=== PATIENT | female | born 1955 | race Caucasian/White ===

== ENCOUNTER 2017-03-30 14:10 | Inpatient (IN) ==
[2017-03-30] MEDS ORDERED: 0.9 % Sodium Chloride 1,000 ML IVC ONE (16:10)
[2017-03-30] MEDS ORDERED: Ondansetron 4 MG/2 ML VIAL IVP ONE (16:10)
[2017-03-30] MEDS ORDERED: Metoclopramide 10 MG/2 ML VIAL IVP ONE (16:11)
[2017-03-30 16:13] LABS: Basophils # 0.1 K/mcL (0.0-0.2); Basophils % 0.6 %; Eosinophils # 0.2 K/mcL (0.0-0.6); Eosinophils % 1.6 %; Hematocrit 39.8 % (35.3-44.9); Hemoglobin 13.1 g/dL (11.5-15.4); Immature Granulocytes % 0.5 % (0-4); Lymphocytes # 2.2 K/mcL (0.6-4.6); Lymphocytes % 20.9 %; Mean Corpuscular HGB Conc 32.9 g/dL (31.6-35.5); Mean Corpuscular Hemoglobin 30.9 pg (28.0-33.3); Mean Corpuscular Volume 93.9 fL (83.0-100.0); Mean Platelet Volume 9.9 fL (9.4-12.4); Monocytes % 9.5 %; Neutrophils # 7.1 K/mcL (1.6-8.9); Platelet Count 209 K/mcL (140-400); Red Blood Count 4.24 M/mcL (3.82-4.97); Segmented Neutrophils % 66.9 %
[2017-03-30 16:25] LABS: Alanine Aminotransferase 10 Units/L (0-55); Albumin 2.9 g/dL (3.5-5.0); Albumin/Globulin Ratio 0.8 (1.1-2.2); Alkaline Phosphatase 87 Units/L (38-126); Aspartate Amino Transferase 9 Units/L (5-34); BUN/Creatinine Ratio 10 (6-26); Bilirubin,Direct 0.2 mg/dL (0.0-0.5); Bilirubin,Indirect 0.3 mg/dL (0.0-1.2); Bilirubin,Total 0.5 mg/dL (0.2-1.2); Blood Urea Nitrogen 7 mg/dL (7-20); Calcium 8.6 mg/dL (8.6-10.8); Carbon Dioxide 28 mEq/L (19-29); Chloride 103 mEq/L (98-109); Globulin 3.7 g/dL (2.4-3.5); Glucose 73 mg/dL (70-99); Osmolality,Calculated 283 (280-300); Potassium 3.2 mEq/L (3.5-4.5); Sodium 138 mEq/L (136-145); Total Protein 6.6 g/dL (6.0-8.3); eGFR For African Americans > 60 (> 60); eGFR For Non-African Americans > 60 (> 60)
--- NOTE | 2017-03-30 17:30 | Emergency Department Note ---
START Narrative - START START: I examined this patient and my medical decision-making was reviewed with the Resident Physician. I agree with the documented findings, disposition and treatment plan as described except to the extent set forth below. 61-year-old female presents emergency room for headache. History of aneurysm in the past. We will do a CT head and CTA. Vital signs are stable.
--- NOTE | 2017-03-30 18:59 | Emergency Department Note ---
Disposition Clinical Impression: Ischemic stroke Headache Qualifiers: Headache type: unspecified Headache chronicity pattern: acute headache Intractability: not intractable Qualified Code(s): R51 - Headache Disposition: Admitted As Inpatient Condition: Fair Referrals: Indigo Louis CNP [Primary Care Provider] - Forms: ED Satisfaction Letter Time of Disposition: 19:47 Headache HPI - General Chief Complaint: ED Headache Stated Complaint: Crystal, blurry vision Time Seen by Provider: 03/30/17 15:24 Limitations: no limitations Nursing Notes Reviewed: Yes Vital Signs Reviewed: Yes - History of Present Illness HPI Narrative: 61-year-old female past medical history of brain aneurysm, hypertension and blindness in the left eye presents to the emergency department with a 48-hour history of left frontal headache. Pain Scale: 8 - Related Data Home Medications Medication Instructions Recorded Confirmed Albuterol Neb [Proventil Neb] 2.5 mg IH Q4H PRN 03/30/17 03/30/17 Donepezil [Aricept] 5 mg PO HS 03/30/17 03/30/17 Doxycycline Monohydrate [Avidoxy] 100 mg PO BID 03/30/17 03/30/17 Fluticasone/Vilanterol [Breo 1 each IH DAILY 03/30/17 03/30/17 Ellipta 100-25 Mcg INH] Lisinopril/Hydrochlorothiazide 1 each PO DAILY 03/30/17 03/30/17 [Zestoretic 20-25 mg Tablet] Naproxen [Naproxen] 500 mg PO BID PRN 03/30/17 03/30/17 Omeprazole [PriLOSEC] 40 mg PO DAILY 03/30/17 03/30/17 Varenicline Tartrate [Chantix] 1 tab PO PER PKG DI 03/30/17 03/30/17 Allergies Allergy/AdvReac Type Severity Reaction Status Date / Time No Known Allergies Allergy Verified 03/30/17 14:16 All systems ED: reviewed and negative except as stated. Review of Systems: As Per HPI Constitutional: Denies: fever, chills Eyes: Reports: vision change. Denies: eye pain ENT ED: Denies: ear pain, throat pain Cardiovascular: Denies: chest pain Respiratory: Denies: cough, dyspnea Gastrointestinal: Denies: abdominal pain, nausea, vomiting Genitourinary: Denies: urgency, dysuria, frequency Musculoskeletal: Denies: back pain, neck pain Integumentary: Denies: rash Neurological: Reports: headache. Denies: weakness, numbness, paresthesias Endocrine: Denies: fatigue Headache PMH - Past Medical History Medical history: Reports: COPD, hyperlipidemia, hypertension, other Psychiatric history: Reports: no psych history - Social History Smoking Status: Current every day smoker Alcohol use: Reports: none Drug use: Reports: none Physical Exam General: Well Appearing, in no acute distress Head: autraumatic, EOMI, no conjuncitval pallor, no scleral icterus, Mouth: oral mucous membranes moist Neck: neck soft, trachea midline Chest:: Equal chest wall rise Lungs: Normal lungs sounds bilaterally, no wheezes, no respiratory distress Heart: normal heart sounds, normal rate and rhythm, Abdomen: soft, non-tender, no rigidity, no guarding, no rebdound tenderness Lower Extremities: no pedal edema, calves non-tender Integumentary: Skin warm, dry, and intact Neuro: Alert and oriented to person place and time, left eye blind but this is not new, subjective blurriness out of right eye, diffuse visual field deficit with right eye, sensory and motor intact, strength 5 out of 5 in upper and lower shoulders bilaterally, negative pronator drift, negative heel to avina Psych: normal affect, normal mood - General Limitations: no limitations General appearance: alert, in no apparent distress Course Course Narrative: 61-year-old female with 48 hour history of severe headache this emergency department with concern for a ruptured brain aneurysm. Patient also had blurriness in her right eye. She is concern for an intracranial hemorrhage or ischemic stroke. CT scan of the head was obtained and revealed a right occipital lobe infarct. Electrocardiogram did not show any signs of atrial fibrillation as the patient was in normal sinus rhythm. Neurology was consulted and recommended to start the patient on 325 mg of aspirin daily as she is not on any blood thinners or antiplatelet medications. The patient's headache resolved in the emergency department through the use of normal saline, Reglan, Benadryl. Patient still having symptoms of blurry vision at time of admission to the hospital. Hospitalist was called and accepted the admission. I discussed the plan with the patient and her son and they are agreed with admission. The patient was hemodynamically stable at time of admission. Repeat blood pressure was 162/98. Vital Signs Temperature 98.2 F 03/30/17 14:18 Pulse Rate 88 03/30/17 14:18 Respiratory Rate 20 03/30/17 14:18 Blood Pressure 182/108 03/30/17 14:18 O2 Sat by Pulse Oximetry 99 03/30/17 14:18 Temperature 98.2 F 03/30/17 14:18 Pulse Rate 88 03/30/17 14:18 Respiratory Rate 20 03/30/17 14:18 Blood Pressure 182/108 03/30/17 14:18 O2 Sat by Pulse Oximetry 99 03/30/17 14:18 Oxygen Delivery Oxygen Delivery Room Air Angiography CT 03/30/17 16:02 IMPRESSION: Left-sided parasellar aneurysm clipping near the A-comm. No residual or recurrent aneurysm is detected. Low-density changes within the right occipital lobe suspicious for acute ischemia. MRI of the brain is suggested for further evaluation. Left frontotemporal craniotomy changes with underlying encephalomalacia not significantly changed. D/ : / 03/30/2017 18:25:41 Gildardo Herrera MD / [email or web address] Interpreting Provider: Gildardo Herrera MD Chest X-Ray 03/30/17 16:12 IMPRESSION: No acute cardiopulmonary process. D/ / 03/30/2017 16:52:12 Zac Aguilar MD / bcarter Interpreting Provider: Zac Aguilar MD Vital Signs Temperature 98.2 F 03/30/17 14:18 Pulse Rate 88 03/30/17 14:18 Respiratory Rate 20 03/30/17 14:18 Blood Pressure 182/108 03/30/17 14:18 O2 Sat by Pulse Oximetry 99 03/30/17 14:18 Temperature 98.2 F 03/30/17 14:18 Pulse Rate 88 03/30/17 14:18 Respiratory Rate 20 03/30/17 14:18 Blood Pressure 182/108 03/30/17 14:18 O2 Sat by Pulse Oximetry 99 03/30/17 14:18 Oxygen Delivery Oxygen Delivery Room Air Headache - Medical Records Medical records reviewed: Yes I reviewed the patient's medical records. - Lab Data Lab results reviewed: Yes I reviewed the patient's lab results. Result diagrams: 03/30/17 15:54 03/30/17 15:54 Lab Results 03/30/17 03/30/17 03/30/17 Range/Units 15:54 15:54 15:54 WBC 10.6 (4.3-11.1) K/mcL RBC 4.24 (3.82-4.97) M/mcL Hgb 13.1 (11.5-15.4) g/dL Hct 39.8 (35.3-44.9) % MCV 93.9 (83.0-100.0) fL MCH 30.9 (28.0-33.3) pg MCHC 32.9 (31.6-35.5) g/dL RDW 13.0 (11.5-14.5) % Plt Count 209 (140-400) K/mcL MPV 9.9 (9.4-12.4) fL Immature Gran % 0.5 (0-4) % Seg Neutrophils % 66.9 % Lymphocytes % 20.9 % Monocytes % 9.5 % Eosinophils % 1.6 % Basophils % 0.6 % Neutrophils # 7.1 (1.6-8.9) K/mcL Lymphocytes # 2.2 (0.6-4.6) K/mcL Monocytes # 1.0 (0.0-1.3) K/mcL Eosinophils # 0.2 (0.0-0.6) K/mcL Basophils # 0.1 (0.0-0.2) K/mcL PT (9.4-12.1) Seconds INR APTT (26.0-36.0) Seconds Sodium 138 (136-145) mEq/L Potassium 3.2 L (3.5-4.5) mEq/L Chloride 103 (98-109) mEq/L Carbon Dioxide 28 (19-29) mEq/L BUN 7 (7-20) mg/dL Creatinine 0.70 (0.57-1.11) mg/dL Est GFR ( Amer) > 60 (> 60) Est GFR (Non-Af Amer) > 60 (> 60) BUN/Creatinine Ratio 10 (6-26) Glucose 73 (70-99) mg/dL Calculated Osmolality 283 (280-300) Calcium 8.6 (8.6-10.8) mg/dL Total Bilirubin 0.5 (0.2-1.2) mg/dL Direct Bilirubin 0.2 (0.0-0.5) mg/dL Indirect Bilirubin 0.3 (0.0-1.2) mg/dL AST 9 (5-34) Units/L ALT 10 (0-55) Units/L Alkaline Phosphatase 87 (38-126) Units/L Troponin I 0.00 (0-0.03) ng/mL Serum Total Protein 6.6 (6.0-8.3) g/dL Albumin 2.9 L (3.5-5.0) g/dL Globulin 3.7 H (2.4-3.5) g/dL Albumin/Globulin Ratio 0.8 L (1.1-2.2) 03/30/17 Range/Units 15:54 WBC (4.3-11.1) K/mcL RBC (3.82-4.97) M/mcL Hgb (11.5-15.4) g/dL Hct (35.3-44.9) % MCV (83.0-100.0) fL MCH (28.0-33.3) pg MCHC (31.6-35.5) g/dL RDW (11.5-14.5) % Plt Count (140-400) K/mcL MPV (9.4-12.4) fL Immature Gran % (0-4) % Seg Neutrophils % % Lymphocytes % % Monocytes % % Eosinophils % % Basophils % % Neutrophils # (1.6-8.9) K/mcL Lymphocytes # (0.6-4.6) K/mcL Monocytes # (0.0-1.3) K/mcL Eosinophils # (0.0-0.6) K/mcL Basophils # (0.0-0.2) K/mcL PT 11.8 (9.4-12.1) Seconds INR 1.1 APTT 28.0 (26.0-36.0) Seconds Sodium (136-145) mEq/L Potassium (3.5-4.5) mEq/L Chloride (98-109) mEq/L Carbon Dioxide (19-29) mEq/L BUN (7-20) mg/dL Creatinine (0.57-1.11) mg/dL Est GFR ( Amer) (> 60) Est GFR (Non-Af Amer) (> 60) BUN/Creatinine Ratio (6-26) Glucose (70-99) mg/dL Calculated Osmolality (280-300) Calcium (8.6-10.8) mg/dL Total Bilirubin (0.2-1.2) mg/dL Direct Bilirubin (0.0-0.5) mg/dL Indirect Bilirubin (0.0-1.2) mg/dL AST (5-34) Units/L ALT (0-55) Units/L Alkaline Phosphatase (38-126) Units/L Troponin I (0-0.03) ng/mL Serum Total Protein (6.0-8.3) g/dL Albumin (3.5-5.0) g/dL Globulin (2.4-3.5) g/dL Albumin/Globulin Ratio (1.1-2.2) - Radiology Data Radiology results reviewed: Yes I reviewed the patient's radiology results. - EKG Data EKG attestation: Yes I reviewed and interpreted this EKG. EKG results narrative: 14:27 Ventricular rate 82 bpm, WA interval 142 ms, QR anabaptism 65 ms, QT 342 ms, QTC 381 ms, normal axis. Sinus rhythm with a ventricular rate of 82 bpm. There are no acute ischemic ST changes noted on this EKG. This EKG is no different from the one performed on May 022001.
[2017-03-30 19:18] LABS: INR 1.1; Prothrombin Time 11.8 Seconds (9.4-12.1)
[2017-03-30] MEDS ORDERED: Aspirin 81 MG TAB.CHEW ONE (20:50)
[2017-03-30] MEDS: Aspirin Enteric Coated 81 MG Tablet PO SCH (20:55)
--- NOTE | 2017-03-30 22:50 | Internal Med History&Physical ---
<DirkGrady - Last Filed: 03/30/17 23:12> Date of Encounter: 03/30/17 Time of Encounter: 22:48 Assessment and Plan (1) CVA (cerebral vascular accident) Current visit: Yes Status: Acute CTA demonstrated findings suspicious for right occipital lobe ischemia, which correspond to her new visual deficits Neurology consulted, appreciate recommendations She has been started on full dose ASA, which we will continue Will obtain Lipid panel and start her on Atorvastatin 40 mg Obtain Echocardiogram and Carotid duplex bilaterally Cannot receive MRI due to history of aneurysmal clips Qualifiers: Qualified Code(s): I63.9 - Cerebral infarction, unspecified (2) COPD (chronic obstructive pulmonary disease) Current visit: Yes Status: Chronic Not in exacerbation as she is not requiring any oxygen and is not short of breath Will support with Robitussin as patient is complaining of cough Continue home inhalers Qualifiers: Qualified Code(s): J44.9 - Chronic obstructive pulmonary disease, unspecified (3) Hypertension Current visit: Yes Status: Chronic Initially presented with BP 182/108 but has decreased without any medications Will allow for permissive hypertension in setting of acute CVA, so will home Lisinopril/HCTZ Qualifiers: Qualified Code(s): I10 - Essential (primary) hypertension (4) Hypokalemia Current visit: Yes Status: Acute Potassium initially 3.2 in ED and received 40 mEq there Obtain AM electrolyte levels including Mg and Phos (5) Alzheimers disease Current visit: Yes Status: Chronic Stable; son confirmed patient's mental status is at baseline and she is A/O x3 Continue home Aricept Qualifiers: Qualified Code(s): G30.9 - Alzheimer's disease, unspecified; F02.80 - Dementia in other diseases classified elsewhere without behavioral disturbance; F02.80 - Dementia in other diseases classified elsewhere without behavioral disturbance; F02.80 - Dementia in other diseases classified elsewhere without behavioral disturbance (6) DVT prophylaxis Current visit: Yes Status: Acute Heparin 5000 units BID Internal Medicine - H&P: HPI Chief complaint: headache Admitted From: Home Plans for Post Hospital Care: Home History of present illness: Ms. Rondon is a 61 year old female who presents with left sided headache that started 2 days ago. She has a history of brain aneurysm which was repaired with clips 10 years ago. She has residual deficits including left eye blindness and forgetfulness, but has no weakness. Son is at bedside and is able to assist with history. Patient states that the pain is very close to where her clippings were and states that her right eye has been blurry and she sees double or triple of objects. She normally has normal vision in her right eye. Also complains of a cough that has been persistent for a week, but is non- productive. Denies any chest pain, shortness of breath, lightheadedness, facial droop, syncope, incontinence. Patient does not take daily aspirin and was previously on cholesterol medication. She does have HTN and is on Zestoretic but states that her blood pressure does drop at times. Denies any bleeding, clotting, or history of cancer. She lives at home with son and is functional in ADL. Past Med Surg Social Fam HX - Past Medical History Medical history: COPD, hyperlipidemia, hypertension, other Psychiatric history: no psych history - Social History Smoking Status: Current every day smoker Smokeless Tobacco Status: No Alcohol use: none Drug use: none Internal Medicine - H&P: Meds Albuterol Neb [Proventil Neb] 2.5 mg IH Q4H PRN 03/30/17 [History] Donepezil [Aricept] 5 mg PO HS 03/30/17 [History] Doxycycline Monohydrate [Avidoxy] 100 mg PO BID 03/30/17 [History] Fluticasone/Vilanterol [Breo Ellipta 100-25 Mcg INH] 1 each IH DAILY 03/30/17 [ History] Lisinopril/Hydrochlorothiazide [Zestoretic 20-25 mg Tablet] 1 each PO DAILY 06/04 [History] Naproxen [Naproxen] 500 mg PO BID PRN 03/30/17 [History] Omeprazole [PriLOSEC] 40 mg PO DAILY 03/30/17 [History] Varenicline Tartrate [Chantix] 1 tab PO PER PKG DI 03/30/17 [History] 3 Allergy/AdvReac Type Severity Reaction Status Date / Time No Known Allergies Allergy Verified 03/30/17 14:16 All Systems PM: A 10-system review of systems was performed and is negative for pertinent findings except as documented above in the HPI. - Constitutional Constitutional: no chills, no fever(s), no night sweats, no weakness - EENT Eyes: blurry vision, diplopia, loss of vision (chronically on left), no change in vision, no discharge, no pain, no photophobia Ears: no ear discharge, no ear pain, no tinnitus Nose, mouth and throat: no dysphagia, no nasal discharge, no neck pain, no sore throat - Cardiovascular Cardiovascular ROS IM: no chest pain, no diaphoresis, no dyspnea, no dyspnea on exertion, no lightheadedness, no palpitations, no syncope - Respiratory Respiratory: no cough, no dyspnea, no wheezing, no excessive phlegm production - Gastrointestinal Gastrointestinal: no abdominal pain, no diarrhea, no hematemesis, no hematochezia, no melena, no nausea, no vomiting - Genitourinary Genitourinary: no change in urinary stream, no dysuria, no flank pain, no hematuria - Musculoskeletal Musculoskeletal ROS IM: no numbness, no tingling - Integumentary Integumentary IM: no rash, no unusual bruising - Neurological Neurological ROS: headache(s), memory loss, no abnormal gait, no abnormal hearing, no confusion, no convulsions, no focal weakness, no frequent falls, no numbness, no tingling, no tremor(s) - Hematologic/Lymphatic Hematologic/Lymphatic: no easy bruising - Constitutional Vitals: Temp Pulse Resp BP Pulse Ox 98.2 F 64 20 151/92 99 03/30/17 14:18 03/30/17 19:59 03/30/17 19:59 03/30/17 19:59 03/30/17 19:59 General appearance: Present: cooperative, A&O X 3, pleasant, no acute distress, answers questions appropriately - Head Head exam: Present: atraumatic, normocephalic - Eye Eye exam: Present: PERRL, conjuntiva pink, sclera anicteric - Neck Neck exam general surgery: Present: supple, trachea midline. Absent: lymphadenopathy - Respiratory Respiratory exam: Present: wheezes. Absent: accessory muscle use, rales, rhonchi - Cardiovascular Cardiovascular exam: Present: RRR, +S1, +S2. Absent: diastolic murmur, gallop, rubs, systolic murmur - GI/Abdominal GI/Abdominal exam: Present: normal bowel sounds, soft, no peritoneal signs. Absent: distended, tenderness - Extremities Exam Extremities exam: Present: warm, radial pulses palpable and symmetrical. Absent : calf tenderness, cyanotic, pedal edema - Neurological Exam Neurological exam: Present: alert, CN II-XII intact, oriented X3, no focal deficits, strengths equal and symetr throughout. Absent: motor sensory deficit , facial droop, speech deficit - Skin Skin exam: Present: dry, intact Internal Med - H&P Results - Labs CBC & Chem 7: 03/30/17 15:54 03/30/17 15:54 <Celia Hodges - Last Filed: 03/31/17 03:38> Date of Encounter: 03/30/17 Internal Medicine - H&P: HPI History of present illness: Ms. Rondon is a 61 year old female All Systems PM: A 10-system review of systems was performed and is negative for pertinent findings except as documented above in the HPI. - Constitutional Vitals: Temp Pulse Resp BP Pulse Ox 98.3 F 60 15 117/71 96 03/31/17 00:46 03/31/17 00:46 03/31/17 00:46 03/31/17 00:46 03/31/17 00:46 Internal Med - H&P Results - Labs CBC & Chem 7: 03/30/17 15:54 03/30/17 15:54 - Attending Attestation I have personally seen and examined the patient. Plan discussed with the resident. Patient came in with headache and diplopia. Symptoms have resolved. Examination otherwise is unremarkable except for left eye blindness. Patient has an occipital stroke. MRI brain ultrasound carotid echocardiogram ordered as well as aspirin and neuro consult.
[2017-03-30] MEDS ORDERED: Naloxone 0.4 MG/ML INJ IVP PRN (23:00)
[2017-03-30] MEDS ORDERED: Ondansetron ODT 4 MG TAB.RAPDIS SL PRN (23:00)
[2017-03-31] MEDS: Acetaminophen 325 MG TABLET PO PRN ×2 (00:09→20:57)
[2017-03-31] MEDS: Albuterol 2.5 MG/3 ML NEBULIZER IH SCH ×5 (03:56→15:26)
[2017-03-31 06:07] LABS: Basophils % 0.5 %; Eosinophils # 0.2 K/mcL (0.0-0.6); Eosinophils % 2.1 %; Hematocrit 37.1 % (35.3-44.9); Hemoglobin 12.2 g/dL (11.5-15.4); Immature Granulocytes % 0.6 % (0-4); Lymphocytes # 2.3 K/mcL (0.6-4.6); Lymphocytes % 27.3 %; Mean Corpuscular HGB Conc 32.9 g/dL (31.6-35.5); Mean Corpuscular Hemoglobin 31.1 pg (28.0-33.3); Mean Corpuscular Volume 94.6 fL (83.0-100.0); Mean Platelet Volume 10.4 fL (9.4-12.4); Monocytes # 0.8 K/mcL (0.0-1.3); Monocytes % 9.9 %; Neutrophils # 4.9 K/mcL (1.6-8.9); Platelet Count 199 K/mcL (140-400); Red Blood Count 3.92 M/mcL (3.82-4.97); Segmented Neutrophils % 59.6 %
[2017-03-31] MEDS: *HR* Heparin 5,000 UNIT/ML VIAL SQ SCH ×2 (06:07→17:28)
[2017-03-31 06:23] LABS: BUN/Creatinine Ratio 10 (6-26); Blood Urea Nitrogen 7 mg/dL (7-20); Calcium 8.5 mg/dL (8.6-10.8); Carbon Dioxide 25 mEq/L (19-29); Chloride 109 mEq/L (98-109); Chol/HDL Ratio 3.5 (0-4.9); Cholesterol 172 mg/dL (< 200); Glucose 95 mg/dL (70-99); HDL Cholesterol 49 mg/dL (40-59); LDL Cholesterol,Calculated 108 mg/dL (0-99); Magnesium 1.9 mg/dL (1.6-2.6); Osmolality,Calculated 288 (280-300); Phosphorous 3.7 mg/dL (2.3-4.7); Sodium 140 mEq/L (136-145); Triglycerides 77 mg/dL (< 150); eGFR For African Americans > 60 (> 60); eGFR For Non-African Americans > 60 (> 60)
--- NOTE | 2017-03-31 07:00 | Internal Med Progress Note ---
<Steve Roberts - Last Filed: 03/31/17 11:15> Date of Encounter: 03/31/17 - Constitutional Vitals: Temp Pulse Resp BP Pulse Ox 98.4 F 62 17 121/71 96 03/31/17 05:37 03/31/17 07:00 03/31/17 07:00 03/31/17 07:00 03/31/17 07:39 Internal Medicine: Result - Labs CBC & Chem 7: 03/31/17 05:19 03/31/17 05:19 - ABG Interpretation ABG results: PT/INR, D-dimer PT 11.8 Seconds (9.4-12.1) 03/30/17 15:54 Consult Discharge Plan - Plan Referrals: Indigo Louis CNP [Primary Care Provider] - - Attending Attestation I examined this patient and my medical decision-making was reviewed with the Resident Physician. I agree with the documented findings, disposition and treatment plan as described except to the extent set forth below. Patient seen and examined. Chart reviewed. Patient came with worsening headache. Patient has a history of a previous aneurysmal surgery in the past. CT suggestive of possible infarct. Neurology on the board. We will follow the neurology recommendations. <Krista Wilks - Last Filed: 03/31/17 23:34> Date of Encounter: 03/31/17 Time of Encounter: 09:00 - Assessment and plan (1) CVA (cerebral vascular accident) Current Visit: Yes Status: Acute Assessment and plan: -ASA and atorvastatin started -normal sinus rhythm on EKG -echocardiogram findings: no evidence of PFO, LVEF 60-65%, normal LV diastolic function, no significant valvular dysfunction -CTA of head: low density changes in Rt occipital lobe are suspicious for acute ischemia -brain aneurysm with clips in 2006, MRI of head is contraindicated -carotid doppler ordered -patient will see neurology at [facility] as out-patient f/u -neurology consult, appreciate recommendations Qualifiers: CVA mechanism: unspecified Qualified Code(s): I63.9 - Cerebral infarction, unspecified (2) COPD (chronic obstructive pulmonary disease) Current Visit: Yes Status: Chronic Assessment and plan: -saturating well on room air, non-labored respirations -continue albuterol and symbicort inhalers Qualifiers: COPD type: unspecified COPD Qualified Code(s): J44.9 - Chronic obstructive pulmonary disease, unspecified (3) Alzheimers disease Current Visit: Yes Status: Chronic Assessment and plan: -at time of exam, pt is alert and oriented to person, place, and time; answers questions appropriately continue donepezil Qualifiers: Alzheimer's disease onset: other onset Dementia behavioral disturbance: without behavioral disturbance Qualified Code(s): G30.8 - Other Alzheimer's disease; F02.80 - Dementia in other diseases classified elsewhere without behavioral disturbance; F02.80 - Dementia in other diseases classified elsewhere without behavioral disturbance; F02.80 - Dementia in other diseases classified elsewhere without behavioral disturbance (4) DVT prophylaxis Current Visit: Yes Status: Acute Assessment and plan: Heparin 5,000 units SubQ - Subjective Interval history: Patient seen and examined at bedside this morning. Vision in patient's Rt eye remains blurred, no change. She feels well this morning and has no additional complaints. Patient denies fever, chill, nausea, vomiting, tinnitus, paresthesias, exremity weakness. - Constitutional Vitals: Temp Pulse Resp BP Pulse Ox 98.4 F 60 15 115/66 95 03/31/17 05:37 03/31/17 05:37 03/31/17 05:37 03/31/17 05:37 03/31/17 05:37 General appearance: Present: cooperative, A&O X 3, pleasant, no acute distress, answers questions appropriately Exam: Gen: Vitals noted. No acute distress. Pleasant. HEENT: EOMI, no scleral icterus, normocephalic, atraumatic, Neck: Supple. Normal ROM. Cardiac: RRR, no murmur, +S1/S2 Pulmonary: no wheezes or rales, diffuse rhonchi; normal respiratory effort, saturating well on room air, no tachypnea Abdomen: nondistended, BS noted Extremities: no LE edema, no cyanosis or clubbing, pedal pulses symmetrical Neuro: AAOx3, no focal deficits, no speech deficits, facial droop; CN II-XII grossly intact, 5/5 strength b/l upper and lower extremities; sensation to touch intact b/l lower and upper extremities Psych: Appropriately answers questions, cooperative, appropriate behavior Internal Medicine: Result - Labs CBC & Chem 7: 03/31/17 05:19 03/31/17 05:19 Labs: Short CBC 03/31/17 Range/Units 05:19 WBC 8.3 (4.3-11.1) K/mcL Hgb 12.2 (11.5-15.4) g/dL Hct 37.1 (35.3-44.9) % Plt Count 199 (140-400) K/mcL Neutrophils # 4.9 (1.6-8.9) K/mcL BMP 03/31/17 05:19 Sodium 140 Potassium 4.0 Chloride 109 Carbon Dioxide 25 BUN 7 Creatinine 0.67 Glucose 95 Calcium 8.5 L - ABG Interpretation ABG results: PT/INR, D-dimer PT 11.8 Seconds (9.4-12.1) 03/30/17 15:54
[2017-03-31] MEDS: Aspirin Enteric Coated 81 MG Tablet PO SCH (09:26)
--- NOTE | 2017-03-31 10:36 | Neurology - Consult Note ---
<Spenser Putnam - Last Filed: 03/31/17 10:44> Date of Encounter: 03/31/17 Time of Encounter: 09:00 Assessment and Plan (1) CVA (cerebral vascular accident) Current Visit: Yes Status: Acute Patient presents to the hospital after several days of visual changes in her right eye including blurriness and double vision. 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 She has no other concerns or complaints and physical exam reveals no abnormalities other than double vision in her right eye and chronic blindness left. Patient is unable to have MRI due to previous aneurysm repair with clips, the CT of patient head shows area in the right occipital lobe suspicious for acute infarct. Recommend further workup to assess potential cause of CVA, including: Carotid Dopplers and echocardiogram Recommend aspirin and statin Recommend PT/OT Qualifiers: CVA mechanism: unspecified Qualified Code(s): I63.9 - Cerebral infarction, unspecified History of Present Illness Chief complaint: CVA and Vision Changes HPI: Ms. Rondon is a 61 year old female with previous medical history of COPD, hypertension, hyperlipidemia, and previous brain aneurysm (repaired about 10 years ago) who presents here [facility] after 3 days of vision changes. She had an aneurysm repaired about 10 years ago a left side of her brain with residual left eye blindness. She noticed Monday morning she was experienced blurred vision and double vision of her right eye. Her symptoms have remained relatively constant for last couple days but the family decided she needed to come to the hospital. She reports having intermittent headache over the last few days but nothing the symptoms associated with the symptoms she is having. She reports no focal weakness and no numbness or tingling anywhere extremities or face. Past Med Surg Social Fam HX - Past Medical History Medical history: COPD, CVA, hyperlipidemia, hypertension, other Psychiatric history: no psych history - Past Surgical History Surgical History: cholecystectomy, hysterectomy - Social History Smoking Status: Current every day smoker Packs per day: 1.5 Smokeless Tobacco Status: No Alcohol use: none Drug use: none - Family History Father Living Status: Age at : 45 Cause of : Cancer Hx Family Cancer: Yes (Unknown what kind of cancer) Medications and Allergies Albuterol Neb [Proventil Neb] 2.5 mg IH Q4H PRN 03/30/17 [History] Donepezil [Aricept] 5 mg PO HS 03/30/17 [History] Doxycycline Monohydrate [Avidoxy] 100 mg PO BID 03/30/17 [History] Fluticasone/Vilanterol [Breo Ellipta 100-25 Mcg INH] 1 each IH DAILY 03/30/17 [ History] Lisinopril/Hydrochlorothiazide [Zestoretic 20-25 mg Tablet] 1 each PO DAILY 06/04 [History] Naproxen [Naproxen] 500 mg PO BID PRN 03/30/17 [History] Omeprazole [PriLOSEC] 40 mg PO DAILY 03/30/17 [History] Varenicline Tartrate [Chantix] 1 tab PO PER PKG DI 03/30/17 [History] 3 Allergy/AdvReac Type Severity Reaction Status Date / Time No Known Allergies Allergy Verified 03/30/17 14:16 Review of Systems: Gen: Denies fever, denies chills CV: Denies chest pain Resp: Denies shortness of breath GI: Denies nausea, denies vomiting Neuro: Report intermittent headaches as per history of present illness, denies confusion, denies focal weakness, denies numbness, denies tingling, reports chronic left eye blindness, reports new right eye blurriness and double vision Physical Examination - Vital Signs Vital Signs: Initial Vital Signs Temp Pulse Resp BP Pulse Ox 98.2 F 88 20 182/108 99 03/30/17 14:18 03/30/17 14:18 03/30/17 14:18 03/30/17 14:18 03/30/17 14:18 - Exam Exam: General: Cooperative, pleasant, no acute distress, alert and oriented 3, answers questions appropriately HEENT: Normocephalic, atraumatic, neck supple, trachea midline, Conjunctiva pink , sclera anicteric, EOMI, PERRL, oral mucosa moist, no orophargeal erythema or exudates, areas of erythema and pallor on tongue Respiratory: No accessory muscle usage, clear to auscultation bilaterally Cardiovascular: Regular rate and rhythm Extremities: No calf tenderness, noncyanotic, no pedal edema appreciated, warm, lower extremity pulses palpable and symmetrical Neurological: Alert and oriented 3, no facial droop, cranial nerves II through XII grossly intact bilaterally except for blindness in left eye (chronic) and double vision in right eye, rapid alternating movements smooth with good omid , finger to nose smooth and accurate, sensation to gross touch intact in upper and lower extremities bilaterally, strength 5/5 in upper and lower extremities bilaterally, DTRs 2/4 in Achilles, patellar, brachioradialis Results - Laboratory Findings CBC and BMP: 03/31/17 05:19 03/31/17 05:19 Abnormal lab findings: Abnormal lab results Calcium 8.5 mg/dL (8.6-10.8) L 03/31/17 05:19 Albumin 2.9 g/dL (3.5-5.0) L 03/30/17 15:54 Globulin 3.7 g/dL (2.4-3.5) H 03/30/17 15:54 Albumin/Globulin Ratio 0.8 (1.1-2.2) L 03/30/17 15:54 LDL Cholesterol, Calc 108 mg/dL (0-99) H 03/31/17 05:19 Consult Discharge Plan - Plan Referrals: Indigo Louis, SYBASE DEVELOPER [Primary Care Provider] - <Celia Baum I - Last Filed: 03/31/17 11:15> Date of Encounter: 03/31/17 Assessment and Plan (1) CVA (cerebral vascular accident) Current Visit: Yes Status: Acute Patient was seen and examined she has not history of fall and aneurysmal clipping in the past , with no vision in the left eye and now having these blurred vision in the right eye without any focal motor deficit on her current neurological examination. Her symptoms and CT scan findings with evidence of decreased attenuation in the right occipital lobe seems to be consistent with acute infarct. The patient did not have any other focal motor deficit on examination. Suggest a stroke workup including carotid and echocardiogram for any embolic source in the meantime we will continue her on aspirin and Lipitor. Because of the aneurysmal clipping she would not be able to get an MRI but CT scan findings and exam findings seems to be quite consistent with acute infarct. Monitor her blood pressure and at the same time monitor for any cardiac arrhythmias. If patient is remained stable and workup is negative she could be discharged but certainly she will need help at home due to her vision problem. Celia Baum MD Qualifiers: CVA mechanism: unspecified Qualified Code(s): I63.9 - Cerebral infarction, unspecified History of Present Illness HPI: Ms. Rondon is a 61 year old female All Systems: A 10-system review of systems was performed and is negative for pertinent findings except as documented above in the HPI. Physical Examination - Vital Signs Vital Signs: Initial Vital Signs Temp Pulse Resp BP Pulse Ox 98.2 F 88 20 182/108 99 03/30/17 14:18 03/30/17 14:18 03/30/17 14:18 03/30/17 14:18 03/30/17 14:18 Results - Laboratory Findings CBC and BMP: 03/31/17 05:19 03/31/17 05:19 Abnormal lab findings: Abnormal lab results Calcium 8.5 mg/dL (8.6-10.8) L 03/31/17 05:19 Albumin 2.9 g/dL (3.5-5.0) L 03/30/17 15:54 Globulin 3.7 g/dL (2.4-3.5) H 03/30/17 15:54 Albumin/Globulin Ratio 0.8 (1.1-2.2) L 03/30/17 15:54 LDL Cholesterol, Calc 108 mg/dL (0-99) H 03/31/17 05:19
--- NOTE | 2017-03-31 15:29 | Electrocardiograph Report ---
[place] [id number] Test Date: 2017-03-30 Pat Name: Marva Rondon Department: 104 Room: 2NE16 Gender: F Fur Examiner: GEE : 1955 Requested By: Praneeth Martinez Order Number: [id number] Reading MD: Wilmar Leone MD Measurements Intervals [place] Rate: 82 P: 19 VT: 142 QRS: -1 QRSD: 65 T: 1 QT: 342 QTc: 381 Interpretive Statements SINUS RHYTHM BASELINE ARTIFACT Electronically Signed On 03-31-2017 15:27:36 EDT by Wilmar Leone MD
[2017-03-31] MEDS: Budesonide/Formoterol 160/4.5 MDI IH SCH (19:49)
[2017-04-01 05:10] LABS: Mean Corpuscular HGB Conc 32.5 g/dL (31.6-35.5); Mean Corpuscular Hemoglobin 30.9 pg (28.0-33.3); Mean Platelet Volume 10.3 fL (9.4-12.4); Platelet Count 225 K/mcL (140-400); Red Blood Count 4.21 M/mcL (3.82-4.97); Red Cell Distribution Width 12.9 % (11.5-14.5)
[2017-04-01 05:21] LABS: BUN/Creatinine Ratio 12 (6-26); Blood Urea Nitrogen 9 mg/dL (7-20); Calcium 8.8 mg/dL (8.6-10.8); Carbon Dioxide 29 mEq/L (19-29); Chloride 106 mEq/L (98-109); Glucose 95 mg/dL (70-99); Osmolality,Calculated 290 (280-300); Potassium 4.1 mEq/L (3.5-4.5); Sodium 141 mEq/L (136-145); eGFR For African Americans > 60 (> 60); eGFR For Non-African Americans > 60 (> 60)
[2017-04-01] MEDS: *HR* Heparin 5,000 UNIT/ML VIAL SQ SCH ×2 (06:29→17:34)
[2017-04-01] MEDS: Budesonide/Formoterol 160/4.5 MDI IH SCH ×2 (07:54→20:10)
[2017-04-01] MEDS: Aspirin Enteric Coated 81 MG Tablet PO SCH (08:45)
--- NOTE | 2017-04-01 10:40 | Internal Med Progress Note ---
Date of Encounter: 04/01/17 Time of Encounter: 10:37 - Assessment and plan (1) CVA (cerebral vascular accident) Current Visit: Yes Status: Acute Assessment and plan: -ASA and atorvastatin started -normal sinus rhythm on EKG -echocardiogram findings: no evidence of PFO, LVEF 60-65%, normal LV diastolic function, no significant valvular dysfunction -CTA of head: low density changes in Rt occipital lobe are suspicious for acute ischemia -brain aneurysm with clips in 2006, MRI of head is contraindicated -carotid doppler ordered -patient will see neurology at [facility] as out-patient f/u -neurology consult, appreciate recommendations 04/01/2017. Right occipital lobe CVA. Patient is blind with the left eye and has a diplopia secondary to right occipital infarct. ASA 325, Lipitor 40 mg LDL: 108, normal electrolytes and CBC Neurology evaluation: Recommended present management. PT/OT evaluation: Awaiting. Echocardiogram:no evidence of PFO, LVEF 60-65%, normal LV diastolic function, no significant valvular dysfunction Ultrasound carotid: No bilateral critical stenosis/nonstenotic plaque. Preliminary report Patient has a previous brain aneurysm and clips placed in 2006: Contraindication for MRI Plan: Once PT/OT give their recommendation : placement as per recommendation. Follow-up with [facility] neurology department since patient is already established care in the neurology Department. Qualifiers: CVA mechanism: unspecified Qualified Code(s): I63.9 - Cerebral infarction, unspecified (2) Hypertension Current Visit: Yes Status: Chronic Assessment and plan: Well controlled with present medication and we will continue same treatment Qualifiers: Hypertension type: essential hypertension Qualified Code(s): I10 - Essential (primary) hypertension (3) COPD (chronic obstructive pulmonary disease) Current Visit: Yes Status: Chronic Assessment and plan: -saturating well on room air, non-labored respirations -continue albuterol and symbicort inhalers Qualifiers: COPD type: unspecified COPD Qualified Code(s): J44.9 - Chronic obstructive pulmonary disease, unspecified (4) DVT prophylaxis Current Visit: Yes Status: Acute Assessment and plan: Heparin 5,000 units SubQ Decision-making: This patient has a moderate to severe risk of worsening in spite of being on appropriate medication due to underlying multiple comorbidities. - Subjective Interval history: Patient seen and examined. Chart reviewed. Patient is comfortably sitting in the bed. Patient denies chest pain, shortness of breath, nausea, vomiting, abdominal pain , dizziness or diarrhea - Constitutional Vitals: Temp Pulse Resp BP Pulse Ox 97.7 F 75 16 138/81 96 04/01/17 08:25 04/01/17 08:25 04/01/17 08:25 04/01/17 08:25 04/01/17 08:25 General appearance: Present: cooperative, A&O X 3, pleasant, no acute distress, answers questions appropriately - Head Head exam: Present: atraumatic, normocephalic - Eye Eye exam: Present: PERRL, conjuntiva pink, sclera anicteric Pupils: Present: PERRL - Neck Neck exam general surgery: Present: supple, trachea midline. Absent: lymphadenopathy - Respiratory Respiratory exam: Present: CTAB. Absent: accessory muscle use, rales, rhonchi, wheezes - Cardiovascular Cardiovascular exam: Present: RRR, +S1, +S2. Absent: diastolic murmur, gallop, rubs, systolic murmur - GI/Abdominal GI/Abdominal exam: Present: normal bowel sounds, soft, no peritoneal signs. Absent: distended, tenderness - Extremities Exam Extremities exam: Present: warm, radial pulses palpable and symmetrical. Absent : calf tenderness, cyanotic, pedal edema - Neurological Exam Neurological exam: Present: CN II-XII intact, oriented X3, no focal deficits. Absent: pronater drift, facial droop, speech deficit - Skin Skin exam: Present: dry, intact Internal Medicine: Result - Labs CBC & Chem 7: 04/01/17 04:03 04/01/17 04:03 Labs: Short CBC 04/01/17 Range/Units 04:03 WBC 7.9 (4.3-11.1) K/mcL Hgb 13.0 (11.5-15.4) g/dL Hct 40.0 (35.3-44.9) % Plt Count 225 (140-400) K/mcL BMP 04/01/17 04:03 Sodium 141 Potassium 4.1 Chloride 106 Carbon Dioxide 29 BUN 9 Creatinine 0.73 Glucose 95 Calcium 8.8 - ABG Interpretation ABG results: PT/INR, D-dimer PT 11.8 Seconds (9.4-12.1) 03/30/17 15:54 - VTE Documentation of Mechanical Device: Intermittent pneumatic compression device Consult Discharge Plan - Plan Referrals: Indigo Louis, COIN PURSE FRAMER [Primary Care Provider] -
--- NOTE | 2017-04-01 11:46 | Neurology Progress Note ---
Date of Encounter: 04/01/17 Time of Encounter: 11:43 Assessment and Plan (1) Occipital cerebral infarction Current Visit: Yes Status: Acute I did review the CT scan of the brain and I agree there is an area of attenuation in the right occipital pole. This would result in abnormality of the nasal visual field of her right eye. This is very likely the deficit that she sees when she is looking out of the right eye. Monocular diplopia is generally not due to neurologic etiologies, and is generally due to purely ocular etiologies. Since she is blind in her left eye binocular diplopia is not possible. I also appreciate weakness of the left upper and left lower extremity. The CT scan does show some scattered hyperintensities in the deep white matter on the right as well. Whether these are acute or chronic is unknown. In any regard I agree with aspirin 81 mg, statin therapy, and antihypertensive therapy. Smoking cessation is paramount. He may discharge her at your discretion. She should follow up with her primary care provider after discharge for further risk factor management. I will reevaluate her your discretion. After discharge she is apparently supposed to follow-up at the [facility] which is where her aneurysm was clipped many years ago. Unfortunately she may not get complete resolution of her visual deficits. Subjective Interval history: Chart was reviewed, the patient was seen and examined. Case was discussed with Dr. Baum during sign out yesterday. Marva's hospitalized secondary to sudden onset of visual changes involving the right eye. She is blind in the left eye as a result of events associated with an aneurysm clipping years ago. The CT scan of the brain suggests an acute right occipital lobe infarct. This is the likely cause of the acute right visual deficit. I also find a tad bit of weakness of the left upper and lower extremities. She does have stroke risk factors including hypertension, hyperlipidemia as well as cigarette smoking. Upon admission to the hospital blood pressure was 182/108. Testing since admission also includes carotid Doppler study which is not revealed any significant carotid artery stenosis as well as echocardiogram which was negative for any evidence of vegetation or embolic source. The vision in the right eye is unchanged. She is able to ambulate as I did check this at the bedside. She is alert and oriented and able to give a good history. Blood pressure today is stable. She denies ever having been on aspirin prior to this event. Objective - Constitutional Vitals: Temp Pulse Resp BP Pulse Ox 97.7 F 75 16 138/81 96 04/01/17 08:25 04/01/17 08:25 04/01/17 08:25 04/01/17 08:25 04/01/17 08:25 - Neurological Exam Motor examination - right side: 5/5: deltoids, biceps, triceps, golf shoe spike assembler, hip flexors, tibialis Anterior, quadriceps, toe extension (EHL), plantarflexion Motor examination - left side: 4/5: deltoids, biceps, triceps, golf shoe spike assembler, quadriceps , tibialis Anterior, toe extension (EHL), plantarflexion Sensation intact: Present: intact Reflex and gait examination: normal gait Reflexes: Biceps: 1+, Triceps: 1+, Brachioradialis: 1+, Patella: 1+, Achilles: 1 + Mental Status Examination: Present: awake, alert, oriented to person, oriented to place, oriented to time, follows commands appropriately, answers questions appropriately, no agnosia, no aphasia, no aproxia Cranial nerve examination: Present: PERRL, EOMI, corneal reflexes brisk symmetrically, sensory to face intact, mastication intact, no facial asymmetry is present, no dysarthria, hearing is intact symmetrically, soft palate elevates bilaterally upon phonation, gag reflex intact, flexes SCM and trapezius muscles symmetrically with full power, tongue protrudes midline Additional comments: Patient is blind in the left eye, and she actually has blurred vision of the right eye. She denies seeing double today. - VTE Documentation of Mechanical Device: Intermittent pneumatic compression device Results - Laboratory Findings CBC and BMP: 04/01/17 04:03 04/01/17 04:03 Abnormal lab findings: Abnormal lab results Albumin 2.9 g/dL (3.5-5.0) L 03/30/17 15:54 Globulin 3.7 g/dL (2.4-3.5) H 03/30/17 15:54 Albumin/Globulin Ratio 0.8 (1.1-2.2) L 03/30/17 15:54 LDL Cholesterol, Calc 108 mg/dL (0-99) H 03/31/17 05:19 Consult Discharge Plan - Plan Referrals: Indigo Louis, INVENTORY CONTROL MANAGER [Primary Care Provider] -
[2017-04-01] MEDS: Acetaminophen 325 MG TABLET PO PRN (20:45)
[2017-04-02] MEDS: *HR* Heparin 5,000 UNIT/ML VIAL SQ SCH ×2 (06:36→17:39)
[2017-04-02] MEDS: Aspirin Enteric Coated 81 MG Tablet PO SCH (07:59)
[2017-04-02] MEDS: Budesonide/Formoterol 160/4.5 MDI IH SCH ×2 (08:03→20:22)
[2017-04-02] MEDS: Albuterol 2.5 MG/3 ML NEBULIZER IH PRN ×2 (08:03→20:22)
--- NOTE | 2017-04-02 11:51 | Internal Med Progress Note ---
Date of Encounter: 04/02/17 Time of Encounter: 11:49 - Assessment and plan (1) CVA (cerebral vascular accident) Current Visit: Yes Status: Acute Assessment and plan: -ASA and atorvastatin started -normal sinus rhythm on EKG -echocardiogram findings: no evidence of PFO, LVEF 60-65%, normal LV diastolic function, no significant valvular dysfunction -CTA of head: low density changes in Rt occipital lobe are suspicious for acute ischemia -brain aneurysm with clips in 2006, MRI of head is contraindicated -carotid doppler ordered -patient will see neurology at [facility] as out-patient f/u -neurology consult, appreciate recommendations 04/01/2017. Right occipital lobe CVA. Patient is blind with the left eye and has a diplopia secondary to right occipital infarct. ASA 325, Lipitor 40 mg LDL: 108, normal electrolytes and CBC Neurology evaluation: Recommended present management. PT/OT evaluation: Awaiting. Echocardiogram:no evidence of PFO, LVEF 60-65%, normal LV diastolic function, no significant valvular dysfunction Ultrasound carotid: No bilateral critical stenosis/nonstenotic plaque. Preliminary report Patient has a previous brain aneurysm and clips placed in 2006: Contraindication for MRI Plan: Once PT/OT give their recommendation : placement as per recommendation. Follow-up with [facility] neurology department since patient is already established care in the neurology Department. 04/02/2017 Patient is able to ambulate in the room. No new neurological deficit. Patient still has a diplopia. Neurology recommendations/evaluation appreciated. Plan: 1. PT/OT evaluation is done tomorrow, patient can be placed accordingly. I have discussed this with the patient/patient's family and they agree with the same. Qualifiers: CVA mechanism: unspecified Qualified Code(s): I63.9 - Cerebral infarction, unspecified (2) COPD (chronic obstructive pulmonary disease) Current Visit: Yes Status: Chronic Assessment and plan: -saturating well on room air, non-labored respirations -continue albuterol and symbicort inhalers Qualifiers: COPD type: unspecified COPD Qualified Code(s): J44.9 - Chronic obstructive pulmonary disease, unspecified (3) Hypertension Current Visit: Yes Status: Chronic Assessment and plan: Well controlled with present medication and we will continue same treatment Qualifiers: Hypertension type: essential hypertension Qualified Code(s): I10 - Essential (primary) hypertension (4) DVT prophylaxis Current Visit: Yes Status: Acute Assessment and plan: Heparin 5,000 units SubQ Decision-making: This patient has a moderate to severe risk of worsening in spite of being on appropriate medication due to underlying multiple comorbidities. - Subjective Interval history: Patient seen and examined. Chart reviewed. Patient is comfortably sitting in the bed. Patient denies chest pain, shortness of breath, nausea, vomiting, abdominal pain , dizziness or diarrhea 04/02/2017 Patient seen and examined. Chart reviewed. Patient is comfortably walking around the room. Patient still having diplopia. Patient denies chest pain, shortness of breath, nausea, abdominal pain, dizziness and diarrhea. - Constitutional Vitals: Temp Pulse Resp BP Pulse Ox 97.5 F L 701 18 142/79 97 04/02/17 11:25 04/02/17 11:25 04/02/17 11:25 04/02/17 11:25 04/02/17 11:25 General appearance: Present: cooperative, A&O X 3, pleasant, no acute distress, answers questions appropriately - Head Head exam: Present: atraumatic, normocephalic - Eye Eye exam: Present: PERRL, conjuntiva pink, sclera anicteric Pupils: Present: PERRL - Neck Neck exam general surgery: Present: supple, trachea midline. Absent: lymphadenopathy - Respiratory Respiratory exam: Present: CTAB. Absent: accessory muscle use, rales, rhonchi, wheezes - Cardiovascular Cardiovascular exam: Present: RRR, +S1, +S2. Absent: diastolic murmur, gallop, rubs, systolic murmur - GI/Abdominal GI/Abdominal exam: Present: normal bowel sounds, soft, no peritoneal signs. Absent: distended, tenderness - Extremities Exam Extremities exam: Present: warm, radial pulses palpable and symmetrical. Absent : calf tenderness, cyanotic, pedal edema - Neurological Exam Neurological exam: Present: CN II-XII intact, oriented X3, no focal deficits. Absent: pronater drift, facial droop, speech deficit - Skin Skin exam: Present: dry, intact Internal Medicine: Result - Labs CBC & Chem 7: 04/01/17 04:03 04/01/17 04:03 - ABG Interpretation ABG results: PT/INR, D-dimer PT 11.8 Seconds (9.4-12.1) 03/30/17 15:54 - VTE Documentation of Mechanical Device: Intermittent pneumatic compression device Consult Discharge Plan - Plan Referrals: Indigo Louis, SIMEON [Primary Care Provider] -
[2017-04-02] MEDS: Acetaminophen 325 MG TABLET PO PRN (20:31)
[2017-04-03] MEDS: *HR* Heparin 5,000 UNIT/ML VIAL SQ SCH (05:35)
--- NOTE | 2017-04-03 08:25 | Physician Discharge Referral ---
- Diagnosis (1) CVA (cerebral vascular accident) Status: Acute (2) COPD (chronic obstructive pulmonary disease) Status: Chronic (3) Alzheimers disease Status: Chronic (4) DVT prophylaxis Status: Acute - Respiratory Orders Smoking Cessation: Smoking cessation has been advised. For more information, call the [place] Tobacco Quit Line at 6-392-FPKC-NOW. - Transfer Medications Home Medications: Albuterol Neb [Proventil Neb] 2.5 mg IH Q4H PRN 03/30/17 [History] Donepezil [Aricept] 5 mg PO HS 03/30/17 [History] Doxycycline Monohydrate [Avidoxy] 100 mg PO BID 03/30/17 [History] Fluticasone/Vilanterol [Breo Ellipta 100-25 Mcg INH] 1 each IH DAILY 03/30/17 [ History] Lisinopril/Hydrochlorothiazide [Zestoretic 20-25 mg Tablet] 1 each PO DAILY 06/04 [History] Naproxen [Naproxen] 500 mg PO BID PRN 03/30/17 [History] Omeprazole [PriLOSEC] 40 mg PO DAILY 03/30/17 [History] Varenicline Tartrate [Chantix] 1 tab PO PER PKG DI 03/30/17 [History] Allergies/Adverse Reactions: 3 Allergy/AdvReac Type Severity Reaction Status Date / Time No Known Allergies Allergy Verified 03/30/17 14:16 Certification: Further, I certify that my clinical findings support that this patient is homebound (i.e. absences from home require considerable and taxing effort and are for medical reasons or caodaism services or infrequently or short duration when for other reasons) because: Attestation: My signature below is to certify that this patient is under my care and that I, or nurse practitioner, or a physician's college sports assistant working with me, has a face-to -face encounter with this patient.
--- NOTE | 2017-04-03 08:25 | Discharge Summary ---
<Steve Roberts P - Last Filed: 04/03/17 21:06> Date of Encounter: 04/03/17 - Discharge Diagnosis (1) CVA (cerebral vascular accident) Status: Acute Qualifiers: CVA mechanism: unspecified Qualified Code(s): I63.9 - Cerebral infarction, unspecified (2) COPD (chronic obstructive pulmonary disease) Status: Chronic Qualifiers: COPD type: unspecified COPD Qualified Code(s): J44.9 - Chronic obstructive pulmonary disease, unspecified (3) Hypertension Status: Chronic Qualifiers: Hypertension type: essential hypertension Qualified Code(s): I10 - Essential (primary) hypertension (4) DVT prophylaxis Status: Acute - Discharge Medications Prescriptions: Aspirin Enteric Coated [Aspirin EC] 325 mg PO DAILY #30 tablet. Atorvastatin [Lipitor] 40 mg PO HS #30 tablet Home Medications: Albuterol Neb [Proventil Neb] 2.5 mg IH Q4H PRN 03/30/17 [History] Donepezil [Aricept] 5 mg PO HS 03/30/17 [History] Doxycycline Monohydrate [Avidoxy] 100 mg PO BID 03/30/17 [History] Fluticasone/Vilanterol [Breo Ellipta 100-25 Mcg INH] 1 each IH DAILY 03/30/17 [ History] Lisinopril/Hydrochlorothiazide [Zestoretic 20-25 mg Tablet] 1 each PO DAILY 06/04 [History] Naproxen 500 mg PO BID PRN 03/30/17 [History] Omeprazole [PriLOSEC] 40 mg PO DAILY 03/30/17 [History] Varenicline Tartrate [Chantix] 1 tab PO PER PKG DI 03/30/17 [History] Aspirin Enteric Coated [Aspirin EC] 325 mg PO DAILY #30 tablet. 04/03/17 [Rx] Atorvastatin [Lipitor] 40 mg PO HS #30 tablet 04/03/17 [Rx] Allergies/Adverse Reactions: 3 Allergy/AdvReac Type Severity Reaction Status Date / Time No Known Allergies Allergy Verified 03/30/17 14:16 Date of admission: 03/31/17 08:15 Primary care physician: Indigo Louis, Consults: 04/01/17 08:16 Consult to Occupational Therapy [CONS] Routine Comment: Evaluate, develop and implement POC Reason for Consult: cva Consult to Physical Therapy [CONS] Routine Comment: Evaluate, develop and implement POC Reason for Consult: cva - Patient Status Disposition: Home, Self-Care Condition: Good - Discharge Instructions Instructions: Aspirin (By mouth), Atorvastatin (By mouth), Ischemic Stroke (DC) Follow Up With: Indigo Louis CNP [Primary Care Provider] - 04/10/17 1:00 pm Additional Instructions: -Follow up with your neurology doctor at [facility]. -Continue taking aspirin, atorvastatin (Lipitor), and lisinopril/ hydrochlorothiazide (Zestoretic). Hospital course: Ms. Rondon is a 61 year old female - Time Spent with Patient Total time spent providing and/or coordinating discharge services: - Constitutional Vitals: Temp Pulse Resp BP Pulse Ox 97.6 F 84 18 172/105 96 04/03/17 10:24 04/03/17 10:24 04/03/17 10:30 04/03/17 10:24 04/03/17 10:30 - Attending Attestation I examined this patient and my medical decision-making was reviewed with the Resident Physician. I agree with the documented findings, disposition and treatment plan as described except to the extent set forth below. <Krista Wilks - Last Filed: 04/03/17 22:38> Date of Encounter: 04/03/17 Time of Encounter: 08:24 - Discharge Diagnosis (1) CVA (cerebral vascular accident) Priority: Primary Status: Acute Qualifiers: CVA mechanism: unspecified Qualified Code(s): I63.9 - Cerebral infarction, unspecified (2) COPD (chronic obstructive pulmonary disease) Priority: Secondary Status: Chronic Qualifiers: COPD type: unspecified COPD Qualified Code(s): J44.9 - Chronic obstructive pulmonary disease, unspecified (3) Alzheimers disease Priority: Secondary Status: Chronic Qualifiers: Alzheimer's disease onset: other onset Dementia behavioral disturbance: without behavioral disturbance Qualified Code(s): G30.8 - Other Alzheimer's disease; F02.80 - Dementia in other diseases classified elsewhere without behavioral disturbance; F02.80 - Dementia in other diseases classified elsewhere without behavioral disturbance; F02.80 - Dementia in other diseases classified elsewhere without behavioral disturbance (4) DVT prophylaxis Priority: Secondary Status: Acute Date of admission: 03/31/17 08:15 Primary care physician: Indigo Louis, Consults: 04/01/17 08:16 Consult to Occupational Therapy [CONS] Routine Comment: Evaluate, develop and implement POC Reason for Consult: cva Consult to Physical Therapy [CONS] Routine Comment: Evaluate, develop and implement POC Reason for Consult: cva Discharging clinician: Krista Wilks Anticipated date of discharge: 04/03/17 - Patient Status Functional capacity at discharge: uses cane/walker (walker at home she is supposed to use, but doesn't) Overall status at discharge: patient is progressing back to baseline - Diet and Activity Activity: ambulate only with your walker, increase activity as tolerated, resume usual activities as tolerated Diet: low fat, low cholesterol, low salt diet Interval History: Patient seen and examined this morning at bedside, she is feeling well today. Patient states that the double vision she presented with remains, it hasn't gotten better or worse since admitted. She denies chest pain, dyspnea, nausea, vomiting, abdominal pain. She has no complaints today. Patient feels she has adequate help at home and that home health isn't necessary, her son that she lives with agrees. However, her son would be interested in information relating to a Life-Alert type system for his mother. Hospital course: Ms. Rondon is a 61 year old female who presented to ED with a complaint of headache x2 days and to Rt eye blurred vision. She reports concern for stroke, ruptured brain aneurysm, intracranial hemorrhage. In the ED, vital signs were significant for BP of 182/108, RR 20. Head CT showed a right occipital lobe infarct in addition to left parasellar aneurysm clipping. EKG was NSR. Neurology was consulted in ED and recommended start of full dose aspirin. Labs were grossly normal. Patient was admitted to medical service for acute occipital CVA. During course of hospital stay, patient gradually improved. MRI was unable to be obtained due to brain clips. Lipid panel, echocardiogram, and carotid duplex were obtained and showed bilateral carotids with nonstenotic plaque, EF of 60-65 % without diastolic dysfunction or PFO. She was continued on ASA and statin. Permissive hypertension was allowed and then gradually decreased. Patient was evaluated by PT/OT who recommends no additional need as patients ambulation had returned to baseline. Vision remained impaired however. On day of discharge , patient was in stable medical condition with vitals all wnl except for continued hypertension. She was instructed to follow up with her PCP for her chronic medical conditions as well as her neurologist as [facility] who performed her aneurysm clips. All questions were answered and she was strongly encouraged to quit smoking. - Time Spent with Patient Total time spent providing and/or coordinating discharge services: - Constitutional Vitals: Temp Pulse Resp BP Pulse Ox 97.6 F 77 14 145/88 99 04/03/17 06:29 04/03/17 06:29 04/03/17 06:29 04/03/17 06:29 04/03/17 07:42 General appearance: Present: cooperative, A&O X 3, pleasant, no acute distress, answers questions appropriately Exam: Gen: Vitals noted. No acute distress. Pleasant. HEENT: EOMI, no scleral icterus, normocephalic, atraumatic, Neck: Supple. Normal ROM. Cardiac: RRR, no murmur, +S1/S2 Pulmonary: no wheezes or rales, normal respiratory effort, saturating well on room air, no tachypnea Extremities: no LE edema, no cyanosis or clubbing, pedal pulses symmetrical Neuro: AAOx3, no focal deficits, no speech deficits, no facial droop Psych: Appropriately answers questions, cooperative, appropriate behavior - VTE Documentation of Mechanical Device: Intermittent pneumatic compression device
[2017-04-03] MEDS: Aspirin Enteric Coated 81 MG Tablet PO SCH (08:26)
[2017-04-03 10:28] VITALS: BP 172/105
[2017-04-03] MEDS: Albuterol 2.5 MG/3 ML NEBULIZER IH PRN (10:28)
[2017-04-03] MEDS: Budesonide/Formoterol 160/4.5 MDI IH SCH (10:28)
== END 2017-04-03 14:35 | disposition home or self-care (01) | DRG 66 ==
LOC: EMEROO 14:10 → 2NENU 14:10
PROVIDERS: ADMIT Internal Medicine; ATTEND Internal Medicine

== ENCOUNTER 2018-03-29 03:28 | Inpatient (IN) ==
[2018-03-29 04:03] LABS: Basophils % 0.7 %; Eosinophils # 0.4 K/mcL (0.0-0.6); Eosinophils % 7.5 %; Hematocrit 32.5 % (35.3-44.9); Hemoglobin 10.8 g/dL (11.5-15.4); Immature Granulocytes % 0.4 % (0-4); Lymphocytes # 0.8 K/mcL (0.6-4.6); Lymphocytes % 14.4 %; Mean Corpuscular HGB Conc 33.2 g/dL (31.6-35.5); Mean Corpuscular Hemoglobin 28.7 pg (28.0-33.3); Mean Corpuscular Volume 86.4 fL (83.0-100.0); Mean Platelet Volume 9.6 fL (9.4-12.4); Monocytes # 0.3 K/mcL (0.0-1.3); Monocytes % 4.7 %; Neutrophils # 3.9 K/mcL (1.6-8.9); Platelet Count 214 K/mcL (140-400); Red Blood Count 3.76 M/mcL (3.82-4.97); Red Cell Distribution Width 15.9 % (11.5-14.5); Segmented Neutrophils % 72.3 %
--- NOTE | 2018-03-29 04:04 | Emergency Department Note ---
Disposition Clinical Impression: Dizziness, Hyponatremia Disposition: Admitted As Inpatient Condition: Fair Fall HPI - General Chief Complaint: ED Extremity Injury, Lower Stated Complaint: Falls/Lightheaded Time Seen by Provider: 03/29/18 03:36 Source: patient Mode of arrival: private vehicle Limitations: no limitations Nursing Notes Reviewed: Yes Vital Signs Reviewed: Yes - History of Present Illness HPI Narrative: 62-year-old female with a past medical history of a brain aneurysm status post clipping over 10 years ago who presents to the ER with a complaint of dizziness and falls. The patient states that she has been dizzy for weeks. She was seen at [facility] where they say she "had an infection drained off her brain". The patient was placed on Bactrim via her PICC line. She states that she has fallen the last 3 days. She got up at 1 AM today to go to the kitchen and felt unsteady and fell. She denies loss of consciousness. She had no other prodromal symptoms. She does take an aspirin daily. She denies any head injury. 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 No new changes to vision in the right. Pt Subjective Complaint: fall Onset (ago): hour(s) Fall From: standing Fall Witnessed: no Place Fall Occurred: home Loss of Consciousness: none Prolonged Down Time?: no Symptoms Prior to Fall: dizziness Context: history of frequent falls Associated symptoms (after fall): Reports: other (Dizziness) - Related Data Allergies Allergy/AdvReac Type Severity Reaction Status Date / Time No Known Allergies Allergy Verified 03/29/18 06:22 All systems ED: reviewed and negative except as stated. Eyes: Denies: vision change Cardiovascular: Denies: chest pain Respiratory: Denies: dyspnea Gastrointestinal: Denies: abdominal pain Musculoskeletal: Denies: back pain, neck pain Neurological: Denies: headache Fall PMH - Past Medical History Medical history: Reports: COPD, CVA, hyperlipidemia, hypertension, other Surgical history: Reports: cholecystectomy, hysterectomy Psychiatric history: Reports: no psych history PHARMACEUTICAL SALES history: Reports: no PHARMACEUTICAL SALES history - Social History Smoking Status: Current every day smoker Alcohol use: Reports: none Drug use: Reports: none Physical Exam - General Limitations: no limitations General appearance: alert, in no apparent distress - Head Head exam: atraumatic, normocephalic - Eye Eye exam: Present: normal appearance - ENT ENT exam: normal exam - Neck Neck exam: Present: normal inspection - Chest Chest inspection: Present: normal inspection, symmetric chest wall rise - Respiratory Respiratory exam: Present: normal lung sounds bilaterally - Cardiovascular Cardiovascular exam: Present: regular rate, normal rhythm, normal heart sounds - Abdominal Exam Abdominal exam: Present: soft, Non-Tender. Absent: tenderness, distention, rigidity - Extremities Exam Extremities exam: Present: normal inspection, full ROM - Expanded Upper Extremity Exam Shoulder exam: Present: normal inspection, full ROM Arm exam: Present: normal inspection, full ROM Elbow exam: Present: normal inspection, full ROM Forearm/Wrist exam: Present: normal inspection, full ROM Hand exam: Present: normal inspection, full ROM - Expanded Lower Extremity Exam Hip/Pelvis exam: Present: normal inspection, full ROM Upper leg exam: Present: normal inspection, full ROM Knee exam: Present: normal inspection, full ROM Lower leg exam: Present: normal inspection, full ROM Ankle exam: Present: normal inspection, full ROM Foot/toe exam: Present: normal inspection, full ROM Neurovascular/Tendon exam: Absent: motor deficit, sensory deficit - Neurological Exam Neurological exam: Present: alert, oriented X3, CN II-XII intact (With the exception of afferent pupillary defect in the left eye) - Expanded Neurological Exam Speech: Present: fluid speech Cranial nerves: EOM function (II, III, IV, ): Normal, facial sensation (V): Normal, spinal accessory function (XI): Normal, tongue deviation (XII): Normal Cerebellar function: finger to nose: Normal Motor strength - LUE: 5/5 Motor strength - RUE: 5/5 Motor strength - LLE: 5/5 Motor strength - RLE: 5/5 Sensory exam upper extremity: light touch: Normal Sensory exam lower extremity: light touch: Normal Coma Scale Eye Opening: Spontaneous Coma Scale Motor Response: Obeys Commands Coma Scale Verbal Response: Oriented Coma Scale Total: 15 - Skin Skin exam: Present: warm, dry Course Course Narrative: Patient seen and examined. Vital signs reviewed. She has no focal deficits outside of her baseline. Plan for EKG, chest x-ray, CT imaging of her head, labs - Reevaluation(s) Reevaluation #1: Discussed results of imaging labs with the patient. She does report that she was on a diuretic and that she stopped it roughly 5 days ago because she was started on to the bathroom all the time. She has also been on Bactrim for the last week and a half. Her sodium is noted to be 117 today. No seizure activity. Plan to discuss with nephrology and likely admission. - Consultations Consultation #1: I spoke with the on-call wood carving lathe operator Dr. Grissom. Discussed the patient's history, recent antibiotics and other medications as well as her labs today showed a sodium of 117. Discussed concern for potential cortical involvement of her hyponatremia. He agrees it is likely multifactorial secondary to medications and potential cerebral salt wasting versus SIADH. Recommends to obtain urine sodium, osmolality, cortisol and serum uric acid. He will see the patient in consultation. He also recommends to start half-normal saline at 75 mL per hour with every 4 hours sodium checks. Vital Signs Temperature 97.5 F L 03/29/18 03:30 Pulse Rate 75 03/29/18 03:30 Respiratory Rate 20 03/29/18 03:30 Blood Pressure 140/82 03/29/18 03:30 O2 Sat by Pulse Oximetry 95 03/29/18 03:30 Temperature 97.5 F L 03/29/18 03:38 Pulse Rate 69 03/29/18 05:13 Respiratory Rate 18 03/29/18 05:13 Blood Pressure 136/99 03/29/18 05:13 O2 Sat by Pulse Oximetry 97 03/29/18 05:13 Oxygen Delivery Oxygen Delivery Room Air Fall - [facility] Narrative Medical decision making narrative: 62-year-old female presenting with dizziness and feeling unsteady on her feet. She has a complicated history of a recent what sounds like intracranial drainage. She is noted to be hyponatremic today at 117. Consideration is multifactorial secondary to medications as well as potential SIADH versus renal cell wasting. Case discussed with nephrology who had recommendations were additional laboratory testing as well as maintenance fluids. The patient is admitted to the hospitalist service with nephrology consultation. - Lab Data Lab results reviewed: Yes I reviewed the patient's lab results. Result diagrams: 03/29/18 03:46 03/29/18 03:46 Lab Results 03/29/18 03/29/18 03/29/18 Range/Units 03:46 03:46 03:46 WBC 5.4 (4.3-11.1) K/mcL RBC 3.76 L (3.82-4.97) M/mcL Hgb 10.8 L (11.5-15.4) g/dL Hct 32.5 L (35.3-44.9) % MCV 86.4 (83.0-100.0) fL MCH 28.7 (28.0-33.3) pg MCHC 33.2 (31.6-35.5) g/dL RDW 15.9 H (11.5-14.5) % Plt Count 214 (140-400) K/mcL MPV 9.6 (9.4-12.4) fL Immature Gran % 0.4 (0-4) % Seg Neutrophils % 72.3 % Lymphocytes % 14.4 % Monocytes % 4.7 % Eosinophils % 7.5 % Basophils % 0.7 % Neutrophils # 3.9 (1.6-8.9) K/mcL Lymphocytes # 0.8 (0.6-4.6) K/mcL Monocytes # 0.3 (0.0-1.3) K/mcL Eosinophils # 0.4 (0.0-0.6) K/mcL Basophils # 0.0 (0.0-0.2) K/mcL PT 12.1 (9.4-12.1) Seconds INR 1.1 Sodium 117 L* (136-145) mEq/L Potassium 4.8 (3.5-5.1) mEq/L Chloride 87 L (98-107) mEq/L Carbon Dioxide 19 L (23-29) mEq/L BUN 11 (8-23) mg/dL Creatinine 0.61 (0.60-1.20) mg/dL Est GFR ( Amer) > 60 (> 60) Est GFR (Non-Af Amer) > 60 (> 60) BUN/Creatinine Ratio 18 (6-26) Glucose 92 (70-105) mg/dL Serum Osmolality (280-300) mOsm/kg Calculated Osmolality 243 L (280-300) Uric Acid < 1.5 L (2.3-7.6) mg/dL Calcium 9.0 (8.6-10.3) mg/dL Troponin I < 0.03 (< 0.04) ng/mL Random Cortisol 31.3 mcg/dl Urine Color (Yellow) Urine Clarity (Clear) Urine pH (5.0-8.0) pH Units Ur Specific Lorimor (1.010-1.025) Urine Protein (Neg-Trace) mg/dL Urine Glucose (UA) (Normal) mg/dL Urine Ketones (Negative) mg/dL Urine Blood (Negative) Urine Nitrite (Negative) Urine Bilirubin (Negative) Urine Urobilinogen (Normal) mg/dL Ur Leukocyte Esterase (Negative) Ur Culture Indicated? (NO) Urine Osmolality (300-1090) mOsm/kg Urine Sodium mEq/L 03/29/18 03/29/18 03/29/18 Range/Units 04:44 05:30 05:30 WBC (4.3-11.1) K/mcL RBC (3.82-4.97) M/mcL Hgb (11.5-15.4) g/dL Hct (35.3-44.9) % MCV (83.0-100.0) fL MCH (28.0-33.3) pg MCHC (31.6-35.5) g/dL RDW (11.5-14.5) % Plt Count (140-400) K/mcL MPV (9.4-12.4) fL Immature Gran % (0-4) % Seg Neutrophils % % Lymphocytes % % Monocytes % % Eosinophils % % Basophils % % Neutrophils # (1.6-8.9) K/mcL Lymphocytes # (0.6-4.6) K/mcL Monocytes # (0.0-1.3) K/mcL Eosinophils # (0.0-0.6) K/mcL Basophils # (0.0-0.2) K/mcL PT (9.4-12.1) Seconds INR Sodium (136-145) mEq/L Potassium (3.5-5.1) mEq/L Chloride (98-107) mEq/L Carbon Dioxide (23-29) mEq/L BUN (8-23) mg/dL Creatinine (0.60-1.20) mg/dL Est GFR ( Amer) (> 60) Est GFR (Non-Af Amer) (> 60) BUN/Creatinine Ratio (6-26) Glucose (70-105) mg/dL Serum Osmolality 245 L (280-300) mOsm/kg Calculated Osmolality (280-300) Uric Acid (2.3-7.6) mg/dL Calcium (8.6-10.3) mg/dL Troponin I (< 0.04) ng/mL Random Cortisol mcg/dl Urine Color Yellow (Yellow) Urine Clarity Clear (Clear) Urine pH 7.0 (5.0-8.0) pH Units Ur Specific [place] 1.017 (1.010-1.025) Urine Protein Negative (Neg-Trace) mg/dL Urine Glucose (UA) Normal (Normal) mg/dL Urine Ketones Negative (Negative) mg/dL Urine Blood Negative (Negative) Urine Nitrite Negative (Negative) Urine Bilirubin Negative (Negative) Urine Urobilinogen Normal (Normal) mg/dL Ur Leukocyte Esterase Negative (Negative) Ur Culture Indicated? NO (NO) Urine Osmolality (300-1090) mOsm/kg Urine Sodium 178.4 mEq/L 03/29/18 Range/Units 05:30 WBC (4.3-11.1) K/mcL RBC (3.82-4.97) M/mcL Hgb (11.5-15.4) g/dL Hct (35.3-44.9) % MCV (83.0-100.0) fL MCH (28.0-33.3) pg MCHC (31.6-35.5) g/dL RDW (11.5-14.5) % Plt Count (140-400) K/mcL MPV (9.4-12.4) fL Immature Gran % (0-4) % Seg Neutrophils % % Lymphocytes % % Monocytes % % Eosinophils % % Basophils % % Neutrophils # (1.6-8.9) K/mcL Lymphocytes # (0.6-4.6) K/mcL Monocytes # (0.0-1.3) K/mcL Eosinophils # (0.0-0.6) K/mcL Basophils # (0.0-0.2) K/mcL PT (9.4-12.1) Seconds INR Sodium (136-145) mEq/L Potassium (3.5-5.1) mEq/L Chloride (98-107) mEq/L Carbon Dioxide (23-29) mEq/L BUN (8-23) mg/dL Creatinine (0.60-1.20) mg/dL Est GFR ( Amer) (> 60) Est GFR (Non-Af Amer) (> 60) BUN/Creatinine Ratio (6-26) Glucose (70-105) mg/dL Serum Osmolality (280-300) mOsm/kg Calculated Osmolality (280-300) Uric Acid (2.3-7.6) mg/dL Calcium (8.6-10.3) mg/dL Troponin I (< 0.04) ng/mL Random Cortisol mcg/dl Urine Color (Yellow) Urine Clarity (Clear) Urine pH (5.0-8.0) pH Units Ur Specific [place] (1.010-1.025) Urine Protein (Neg-Trace) mg/dL Urine Glucose (UA) (Normal) mg/dL Urine Ketones (Negative) mg/dL Urine Blood (Negative) Urine Nitrite (Negative) Urine Bilirubin (Negative) Urine Urobilinogen (Normal) mg/dL Ur Leukocyte Esterase (Negative) Ur Culture Indicated? (NO) Urine Osmolality 561 (300-1090) mOsm/kg Urine Sodium mEq/L - Radiology Data Radiology results reviewed: Yes I reviewed the patient's radiology results. Chest X-Ray 03/29/18 03:50 IMPRESSION: No acute cardiopulmonary findings. Appearance of the aortic arch is unchanged, suspicious for concomitant aneurysm or other process. Although stability is reassuring, recommend further evaluation with CTA chest. D/ / Smooth Severino / Smooth Severino Interpreting Provider: Smooth Severino Head CT 03/29/18 03:50 IMPRESSION: No acute intracranial abnormality. Stable chronic findings, as above. D/ / Smooth Severino / Smooth Severino Interpreting Provider: Smooth Severino Hip X-Ray 03/29/18 04:17 IMPRESSION: No fracture or malalignment of the left hip or bony pelvis. D/ / Smooth Severino / Smooth Severino Interpreting Provider: Smooth Severino - EKG Data EKG attestation: Yes I reviewed and interpreted this EKG. EKG results narrative: EKG demonstrates sinus rhythm with a rate of 66 bpm. There is diffuse artifact. Normal axis. Normal intervals. Normal R-wave progression. No gross ST elevations or depressions. No acute ischemic findings. Monica - Monica Situation: Demographics, MOA Background: Presenting Complaint, Relevant PMH, Meds, & Allergies Assessment: Course and respsone to treatment, Exam Concerns, Patient/Family Expectation, Pertinant Lab Results Recommendation: Barrier(s) to disposition, Recommendation based on pending studies, treatments, or consults Monica Report Given to: Dr. Rosana Anderson Repor Time: 05:42
[2018-03-29 04:17] LABS: BUN/Creatinine Ratio 18 (6-26); Blood Urea Nitrogen 11 mg/dL (8-23); Carbon Dioxide 19 mEq/L (23-29); Chloride 87 mEq/L (98-107); Glucose 92 mg/dL (70-105); Osmolality,Calculated 243 (280-300); Potassium 4.8 mEq/L (3.5-5.1); Sodium 117 mEq/L (136-145); eGFR For Non-African Americans > 60 (> 60)
[2018-03-29 04:18] LABS: INR 1.1; Prothrombin Time 12.1 Seconds (9.4-12.1); Troponin I < 0.03 ng/mL (< 0.04)
[2018-03-29] MEDS ORDERED: *HR* OxyCODONE/APAP 5/325 TABLET PO ONE (05:41)
[2018-03-29 05:43] LABS: Bilirubin,Urine Negative (Negative); Blood,Urine Negative (Negative); Clarity,Urine Clear (Clear); Color,Urine Yellow (Yellow); Glucose,Urine (UA) Normal (Normal); Ketones,Urine Negative (Negative); Leukocyte Esterase,Urine Negative (Negative); Nitrite,Urine Negative (Negative); Protein,Urine Negative (Neg-Trace); Specific Gravity,Urine 1.017 (1.010-1.025); Urobilinogen,Urine Normal (Normal)
--- NOTE | 2018-03-29 05:46 | Emergency Department Note ---
Disposition Clinical Impression: Dizziness, Hyponatremia Disposition: Admitted As Inpatient Condition: Fair Referrals: Indigo Louis CNP [Primary Care Provider] - Forms: ED Satisfaction Letter General Adult HPI - General Chief complaint: ED Extremity Injury, Lower Stated complaint: Falls/Lightheaded Time Seen by Provider: 03/29/18 03:36 Source: patient Mode of arrival: private vehicle Limitations: no limitations Nursing Notes Reviewed: Yes Vital Signs Reviewed: Yes - History of Present Illness Pain Scale: 8 - Related Data Home Medications Medication Instructions Recorded Confirmed Albuterol Neb [Proventil Neb] 2.5 mg IH Q4H PRN 03/30/17 03/30/17 Donepezil [Aricept] 5 mg PO HS 03/30/17 03/30/17 Doxycycline Monohydrate [Avidoxy] 100 mg PO BID 03/30/17 03/30/17 Fluticasone/Vilanterol [Breo 1 each IH DAILY 03/30/17 03/30/17 Ellipta 100-25 Mcg INH] Lisinopril/Hydrochlorothiazide 1 each PO DAILY 03/30/17 03/30/17 [Zestoretic 20-25 mg Tablet] Naproxen 500 mg PO BID PRN 03/30/17 03/30/17 Omeprazole [PriLOSEC] 40 mg PO DAILY 03/30/17 03/30/17 Varenicline Tartrate [Chantix 1 tab PO PER PKG DI 03/30/17 03/30/17 Starting Month LJ] Previous Rx's Medication Instructions Recorded Aspirin Enteric Coated [Aspirin EC] 325 mg PO DAILY #30 tablet. 04/03/17 Atorvastatin [Lipitor] 40 mg PO HS #30 tablet 04/03/17 Allergies Allergy/AdvReac Type Severity Reaction Status Date / Time No Known Allergies Allergy Verified 03/29/18 03:34 Eyes: Denies: vision change Cardiovascular: Denies: chest pain Respiratory: Denies: dyspnea Gastrointestinal: Denies: abdominal pain Musculoskeletal: Denies: back pain, neck pain Neurological: Denies: headache Past Medical History - Past Medical History Medical history: Reports: COPD, CVA, hyperlipidemia, hypertension, other Surgical history: Reports: cholecystectomy, hysterectomy Psychiatric history: Reports: no psych history INSPECTOR PLUMBING history: Reports: no INSPECTOR PLUMBING history - Social History Smoking Status: Current every day smoker Smokeless Tobacco Status: No Alcohol use: Reports: none Drug use: Reports: none Physical Exam - General Limitations: no limitations General appearance: alert, in no apparent distress Course Vital Signs Temperature 97.5 F L 03/29/18 03:30 Pulse Rate 75 03/29/18 03:30 Respiratory Rate 20 03/29/18 03:30 Blood Pressure 140/82 03/29/18 03:30 O2 Sat by Pulse Oximetry 95 03/29/18 03:30 Temperature 97.5 F L 03/29/18 03:38 Pulse Rate 69 03/29/18 05:13 Respiratory Rate 18 03/29/18 05:13 Blood Pressure 136/99 03/29/18 05:13 O2 Sat by Pulse Oximetry 97 03/29/18 05:13 Oxygen Delivery Oxygen Delivery Room Air Medical Decision Making - Medical Records Medical records reviewed: Yes I reviewed the patient's medical records. - Lab Data Lab results reviewed: Yes I reviewed the patient's lab results. Result diagrams: 03/29/18 03:46 03/29/18 03:46 Lab Results 03/29/18 03/29/18 03/29/18 Range/Units 03:46 03:46 03:46 WBC 5.4 (4.3-11.1) K/mcL RBC 3.76 L (3.82-4.97) M/mcL Hgb 10.8 L (11.5-15.4) g/dL Hct 32.5 L (35.3-44.9) % MCV 86.4 (83.0-100.0) fL MCH 28.7 (28.0-33.3) pg MCHC 33.2 (31.6-35.5) g/dL RDW 15.9 H (11.5-14.5) % Plt Count 214 (140-400) K/mcL MPV 9.6 (9.4-12.4) fL Immature Gran % 0.4 (0-4) % Seg Neutrophils % 72.3 % Lymphocytes % 14.4 % Monocytes % 4.7 % Eosinophils % 7.5 % Basophils % 0.7 % Neutrophils # 3.9 (1.6-8.9) K/mcL Lymphocytes # 0.8 (0.6-4.6) K/mcL Monocytes # 0.3 (0.0-1.3) K/mcL Eosinophils # 0.4 (0.0-0.6) K/mcL Basophils # 0.0 (0.0-0.2) K/mcL PT 12.1 (9.4-12.1) Seconds INR 1.1 Sodium 117 L* (136-145) mEq/L Potassium 4.8 (3.5-5.1) mEq/L Chloride 87 L (98-107) mEq/L Carbon Dioxide 19 L (23-29) mEq/L BUN 11 (8-23) mg/dL Creatinine 0.61 (0.60-1.20) mg/dL Est GFR ( Amer) > 60 (> 60) Est GFR (Non-Af Amer) > 60 (> 60) BUN/Creatinine Ratio 18 (6-26) Glucose 92 (70-105) mg/dL Calculated Osmolality 243 L (280-300) Calcium 9.0 (8.6-10.3) mg/dL Troponin I < 0.03 (< 0.04) ng/mL - Radiology Data Radiology results reviewed: Yes I reviewed the patient's radiology results. Chest X-Ray 03/29/18 03:50 IMPRESSION: No acute cardiopulmonary findings. Appearance of the aortic arch is unchanged, suspicious for concomitant aneurysm or other process. Although stability is reassuring, recommend further evaluation with CTA chest. D/ / Smooth Severino / Smooth Severino Interpreting Provider: Smooth Severino Head CT 03/29/18 03:50 IMPRESSION: No acute intracranial abnormality. Stable chronic findings, as above. D/ / Smooth Severino / Smooth Severino Interpreting Provider: Smooth Severino Hip X-Ray 03/29/18 04:17 IMPRESSION: No fracture or malalignment of the left hip or bony pelvis. D/ / Smooth Severino / Smooth Severino Interpreting Provider: Smooth Severino - EKG Data EKG #1 EKG attestation: Yes I reviewed and interpreted this EKG. EKG results narrative: EKG shows a normal sinus rhythm with ventricular rate of 66. No acute ST segment elevation or depression. No arrhythmia or ectopy. Attestation Statement - Attestation Attestation: I, Matteo Albrecht MD, personally evaluated this patient and discussed their management with the resident physician. I reviewed the resident's note and agree with the documented findings, medical decision making, and plan of care. 62-year-old female who appears much older than her actual age presents to the emergency department with a complaint of frequent falls over the past 3 days. That she gets dizzy and lightheaded and discussed down. She denies syncope. 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 She is still receiving IV antibiotics, Bactrim , at home. Tonight after falling she complains of pain in her left hip and difficulty walking or bearing weight. She also complains of generalized back pain which is somewhat chronic but worse after falling. On examination patient is a well-developed well-nourished female in no acute distress. She is alert and oriented 3. There is no cyanosis or diaphoresis. Breath sounds are clear and equal bilaterally. Heart regular rate and rhythm. Abdomen soft and nontender with normal bowel sounds. Labs reviewed. Sodium 117. No acute abnormality on head CT. No acute abnormality on chest x-ray. There was some suspicious findings of the aortic arch however these were unchanged from previous films. Normal EKG. Dr. Escamilla discussed the case with the mobile ui developer on-call, Dr. Goldsmith, and he will consult on the patient. The hospitalist, Dr. Wayne, was consulted and accepted admission of the patient.
[2018-03-29 05:50] LABS: Uric Acid < 1.5 mg/dL (2.3-7.6)
[2018-03-29] MEDS ORDERED: Albuterol 2.5 MG/3 ML NEBULIZER IH PRN (07:22)
[2018-03-29] MEDS ORDERED: Naloxone 0.4 MG/ML INJ IVP PRN (07:27)
[2018-03-29] MEDS ORDERED: Acetaminophen 325 MG TABLET PO PRN (07:27)
--- NOTE | 2018-03-29 08:15 | Internal Med History&Physical ---
Date of Encounter: 03/29/18 Time of Encounter: 07:45 Internal Medicine - H&P: HPI Chief complaint: frequent fall Admitted From: Home History of present illness: Ms. 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 She states that it has been going on for the last few weeks but worsen over the past 3 days. Usually happens when she gets up from lying position. Denies any prodromal symptoms including chest pain, palpitation, blurring of vision. Did not have any LOC or head injury. No fever/chills, nausea/vomiting, abdominal pain, diarrhea, dysuria, or sick contacts. No recent change in medications. In the ED, she was afebrile and hemodynamically stable. Labwork showed hyponatremia of 117 with normal electrolytes. Serum osm 245, uric acid < 1.5, random cortisol at 4 am 31.3. Urine osm 561, urine sodium 178. Urinalysis was negative for leukocyte esterase or nitrite. Head CT did not show any acute intracranial processes. Both chest and hip x-rays were also unremarkable. After discussing with nephrology collections agent, she was started on 1/2 NS (which was not given yet at the time of my interview) and admitted for further management. Past Med Surg Social Fam HX - Past Medical History Attestation: Yes The following information was validated with the patient. Medical history: COPD, CVA, hyperlipidemia, hypertension, other Additional medical history: hx aneurysms Psychiatric history: no psych history - Past Surgical History Surgical History: cholecystectomy, hysterectomy Additional surgical history: brain aneurysm repair - Social History Smoking Status: Current every day smoker Packs per day: 1 Smokeless Tobacco Status: No Alcohol use: none Drug use: none - Family History Father Living Status: Age at : 45 Cause of : cancer Hx Family Cancer: Yes (Unknown what kind of cancer) Internal Medicine - H&P: Meds Albuterol Neb [Proventil Neb] 2.5 mg IH Q4HR PRN 03/29/18 [History] Aspirin [Adult Aspirin] 81 mg PO DAILY 03/29/18 [History] Atorvastatin [Lipitor] 40 mg PO HS 03/29/18 [History] Cholecalciferol (D-3) [Vitamin D] 1,000 unit PO 2XW 03/29/18 [History] Donepezil [Aricept] 5 mg PO HS 03/29/18 [History] Lisinopril [Zestril] 20 mg PO DAILY PRN 03/29/18 [History] Naproxen [Naproxen] 500 mg PO BID PRN 03/29/18 [History] Omeprazole [PriLOSEC] 40 mg PO DAILY 03/29/18 [History] Sulfamethoxazole/Trimeth [Bactrim 800MG/160MG/10ML] 23.5 ml IVPB TID 03/29/18 [ History] hydroCHLOROthiazide [Hydrochlorothiazide] 25 mg PO DAILY 03/29/18 [History] 3 Allergy/AdvReac Type Severity Reaction Status Date / Time No Known Allergies Allergy Verified 03/29/18 06:22 All Systems PM: A 10-system review of systems was performed and is negative for pertinent findings except as documented above in the HPI. - Constitutional Vitals: Temp Pulse Resp BP Pulse Ox 97.9 F 61 18 113/72 92 03/29/18 06:46 03/29/18 06:46 03/29/18 06:46 03/29/18 06:46 03/29/18 06:46 Exam: General: Alert and oriented, not in acute distress. HEENT:EOM, pupils equal, round and reactive. Cardiovascular:Normal S1 & S2, No JVD. Pulse regular. Lungs: clear to auscultation, no wheezes/rales Abdomen:Soft, non-tender, no rigidity. Extremities:No deformity or swelling Neurological: CN II-XII intact, power and sensation fully intact in all 4 limbs. No cerebellar signs, pronator drift -ve, Babinski downgoing bilaterally Skin:Normal color, no rash, no lesions. Pulses:Carotid and radial pulses normal +2. Rest of the physical exam is non contributory Internal Med - H&P Results - Labs CBC & Chem 7: 03/29/18 03:46 03/29/18 03:46 - Assessment and plan (1) Hyponatremia Current Visit: Yes Status: Acute Assessment and plan: symptomatic hyponatremia of 117 multifactorial, HCTZ-induced +/- SIADH +/- cerebral salt wasting no evidence of hypocortisolism check TSH, lipid panel started on 1/2 NS per nephrology's recommendation monitor Na Q4, aim 125 by tomorrow 4am (2) History of brain surgery Current Visit: Yes Status: Acute Assessment and plan: Reported to have drainage of "brain infection with Salmonella" at [facility] recently, on IV Bactrim at home restart once reconciled (3) CVA (cerebral vascular accident) Current Visit: No Status: Acute Assessment and plan: Appears to be due to left MCA aneurysm which is noted to be clipped on CT head ASA, statin Qualifiers: CVA mechanism: unspecified Qualified Code(s): I63.9 - Cerebral infarction, unspecified (4) Hypertension Current Visit: No Status: Chronic Assessment and plan: Hold off on hydrochlorothiazide in view of hyponatremia Qualifiers: Hypertension type: essential hypertension Qualified Code(s): I10 - Essential (primary) hypertension (5) Tobacco abuse Current Visit: No Status: Chronic Assessment and plan: Counseling provided Nicotine replacement therapy (6) DVT prophylaxis Current Visit: No Status: Acute Assessment and plan: SCD - Time Spent With Patient Total time spent is greater than 50% in coordination of care (as documented) at patient's floor/unit and/or counseling patient:
[2018-03-29] MEDS ORDERED: SULFAMETHOXAZOLE IVPB SCH (09:00)
[2018-03-29] MEDS ORDERED: TRIMETHOPRIM IVPB SCH (09:00)
[2018-03-29] MEDS: Cholecalciferol (D-3) 1,000 UNIT TABLET PO SCH (09:35)
[2018-03-29] MEDS: WATER IVPB SCH ×2 (09:36→17:14)
[2018-03-29] MEDS: D5 IVPB SCH ×2 (09:36→17:14)
[2018-03-29] MEDS: Aspirin Enteric Coated 81 MG Tablet PO SCH (09:36)
[2018-03-29] MEDS: Nicotine 21 MG PATCH.TD24 TD SCH (09:36)
[2018-03-29] MEDS: TRIMETH IVPB SCH ×2 (09:36→17:14)
[2018-03-29] MEDS: SULFAMETHOXAZOLE IVPB SCH ×2 (09:36→17:14)
--- NOTE | 2018-03-29 10:56 | Nephrology Consult Note ---
Date of Encounter: 03/29/18 Time of Encounter: 12:07 Assessment and Plan (1) Hyponatremia Current Visit: Yes Status: Acute This appears to be the first time the patient has been hyponatremic. Urine osmo is 561 urine sodium is 178.4 Serum osmo is 245 Random cortisol is 31.3 Uric acid is low at less than 1.5. Appears hyponatremia is multifactorial at this point related to medications and recent craniotomy. Continue every 4 hours serum sodium checks. D/C IVF. Salt tabs started TID. 1.5 L fluid restriction Allow salt in the diet Would recommend a CT chest w/o contrast to rule out malignancy. (2) History of craniotomy Current Visit: Yes Status: Acute Could be a determining factor to hyponatremia. (3) Dizziness Current Visit: Yes Status: Acute Bed alarm on for safety. Up with assistance only. (4) CVA (cerebral vascular accident) Current Visit: No Status: Acute HX of, per primary. Qualifiers: CVA mechanism: unspecified Qualified Code(s): I63.9 - Cerebral infarction, unspecified History of Present Illness - Reason for Consult Consult date: 03/29/18 hyponatremia Requesting physician: Katharina Wayne - Chief Complaint falls/lightheaded - History of Present Illness Ms. Sams is a 62-year-old female. She presented to the ED with complaints of falling and feeling lightheaded. She is status post craniotomy for drainage of "brain infection" with Salmonella. I do not have records to see the exact date but she tells me it was about a week ago. The patient is alert and oriented 3 with exam but tells me she often forgets things due to her aneurysm to the left MCA. PMH: hypertension, COPD, GERD. Her symptoms of feeling lightheaded and falling have worsened over the last 3 days. She notices it mostly when she is lying flat and gets up. Denies any associated symptoms including chest pain palpitations or blurred vision. Denies loss of consciousness or head injury. Denies, fever, chills, nausea, vomiting, and abdominal pain. Initial sodium was 117 in the ED. [facility] were consulted for the management of the hyponatremia. Most of the hyponatremia workup was initiated in the ED. There is previous lab work in the EMR and it appears this is the first time she has been hyponatremic to this point. She was started on hydrochlorothiazide after surgery. This could be a contributing factor, recommend holding that at this time. She does live at home with her son. She is a current 1 pack a day smoker since she was 18 years old. Denies EtOH or illicit drug use. Denies any sick contacts around her. Past Med Surg Social Fam HX - Past Medical History Medical history: COPD, CVA, hyperlipidemia, hypertension, other Additional medical history: hx aneurysms Psychiatric history: no psych history - Past Surgical History Surgical History: cholecystectomy, hysterectomy Additional surgical history: brain aneurysm repair - Social History Smoking Status: Current every day smoker Packs per day: 1 Smokeless Tobacco Status: No Alcohol use: none Drug use: none - Family History Father Living Status: Age at : 45 Cause of : cancer Hx Family Cancer: Yes (Unknown what kind of cancer) Medications and Allergies Albuterol Neb [Proventil Neb] 2.5 mg IH Q4HR PRN 03/29/18 [History] Aspirin [Adult Aspirin] 81 mg PO DAILY 03/29/18 [History] Atorvastatin [Lipitor] 40 mg PO HS 03/29/18 [History] Cholecalciferol (D-3) [Vitamin D] 1,000 unit PO 2XW 03/29/18 [History] Donepezil [Aricept] 5 mg PO HS 03/29/18 [History] Lisinopril [Zestril] 20 mg PO DAILY PRN 03/29/18 [History] Naproxen [Naproxen] 500 mg PO BID PRN 03/29/18 [History] Omeprazole [PriLOSEC] 40 mg PO DAILY 03/29/18 [History] Sulfamethoxazole/Trimeth [Bactrim 800MG/160MG/10ML] 23.5 ml IVPB TID 03/29/18 [ History] hydroCHLOROthiazide [Hydrochlorothiazide] 25 mg PO DAILY 03/29/18 [History] 3 Allergy/AdvReac Type Severity Reaction Status Date / Time No Known Allergies Allergy Verified 03/29/18 06:22 Review of Systems Constitutional: no chills, no fatigue, no fever(s) Cardiovascular: no chest pain, no dyspnea, no edema Respiratory: no cough Gastrointestinal: no abdominal pain, no diarrhea, no nausea, no vomiting Genitourinary Female: no hematuria, no urinary frequency, no urinary hesitancy, no urinary urgency Exam - Vital Signs Vital signs: Initial Vital Signs Temp Pulse Resp BP Pulse Ox 97.5 F L 75 20 140/82 95 03/29/18 03:30 03/29/18 03:30 03/29/18 03:30 03/29/18 03:30 03/29/18 03:30 Vital Signs - Last 8 Hours Temp Pulse Resp BP Pulse Ox 03/29/18 06:46 97.9 F 61 18 113/72 92 - General Appearance General appearance: well-developed, well-nourished EENT: ATNC, hearing intact, vision intact Neck: supple Respiratory: clear Cardiology: no edema, normal S1, normal S2 Gastrointestinal: normoactive bowel sounds, no tenderness, no guarding Integumentary: no rash, warm and dry Neurologic: alert and oriented x3 Musculoskeletal: no deformities Psychiatric: mood/affect appropriate, cooperative Results - Lab Results 03/29/18 03:46 03/29/18 12:20 Most recent lab results Calcium 9.0 mg/dL (8.6-10.3) 03/29/18 03:46 Urine Sodium 178.4 mEq/L 03/29/18 05:30 Consult Discharge Plan - Plan Referrals: Indigo Louis CNP [Primary Care Provider] -
[2018-03-29 13:09] LABS: Thyroid Stimulating Hormone 3.524 mcIU/mL (0.340-5.600)
[2018-03-29 13:25] LABS: Chol/HDL Ratio 3.3 (0-4.9)
[2018-03-29] MEDS: *HR* HYDROcodone/Acet 5/325 mg TABLET PO PRN ×2 (14:40→22:41)
--- NOTE | 2018-03-29 17:13 | Event Note ---
Date of Encounter: 03/29/18 Time of Encounter: 17:09 Nephrology Update PNa has actually worsened and so with her SIADH she may be retaining the free water component of the 0.45% IVF, so this will need to be stopped and placed on a tight fluid restriction. Also since her spot Mouna was quite elevated, and with recent neuro surgery she may be salt wasting as well, so I recommend adding NaCl. I called the floor and spoke with nurse Radha and recommended the above, but if she continues to worsen then she may need transferred to the ICU and q2hr PNa checks, +/- 3% saline. Of note, over the last few years new pharmacologic data has show that 3% saline (if needed for this pleasant patient) does not actually require a CVC for administration. Will continue to closely follow with you.
[2018-03-29] MEDS: Tolvaptan 15 MG TABLET PO ONE ×2 (19:56→22:23)
[2018-03-29] MEDS ORDERED: Tolvaptan 15 MG TABLET PO ONE (20:28)
[2018-03-29] MEDS: Ondansetron 4 MG/2 ML VIAL IVP PRN (21:21)
[2018-03-30] MEDS: D5 IVPB SCH ×2 (00:23→09:06)
[2018-03-30] MEDS: SULFAMETHOXAZOLE IVPB SCH ×3 (00:23→16:48)
[2018-03-30] MEDS: WATER IVPB SCH ×2 (00:23→09:06)
[2018-03-30] MEDS: TRIMETH IVPB SCH ×3 (00:23→16:48)
[2018-03-30 02:35] LABS: Hematocrit 31.9 % (35.3-44.9); Hemoglobin 10.8 g/dL (11.5-15.4); Mean Corpuscular HGB Conc 33.9 g/dL (31.6-35.5); Mean Corpuscular Hemoglobin 28.8 pg (28.0-33.3); Mean Corpuscular Volume 85.1 fL (83.0-100.0); Mean Platelet Volume 9.1 fL (9.4-12.4); Platelet Count 193 K/mcL (140-400); Red Blood Count 3.75 M/mcL (3.82-4.97); Red Cell Distribution Width 15.8 % (11.5-14.5)
[2018-03-30 02:48] LABS: BUN/Creatinine Ratio 14 (6-26); Blood Urea Nitrogen 8 mg/dL (8-23); Calcium 8.5 mg/dL (8.6-10.3); Carbon Dioxide 19 mEq/L (23-29); Chloride 87 mEq/L (98-107); Glucose 110 mg/dL (70-105); Magnesium 1.7 mg/dL (1.6-2.6); Osmolality,Calculated 239 (280-300); Potassium 3.9 mEq/L (3.5-5.1); Sodium 115 mEq/L (136-145); eGFR For Non-African Americans > 60 (> 60)
[2018-03-30] MEDS: *HR* HYDROcodone/Acet 5/325 mg TABLET PO PRN ×2 (07:00→20:33)
[2018-03-30] MEDS: Aspirin Enteric Coated 81 MG Tablet PO SCH (09:06)
[2018-03-30] MEDS: Nicotine 21 MG PATCH.TD24 TD SCH (09:06)
[2018-03-30] MEDS: *HR* OxyCODONE Immed Rel 5 MG TABLET PO PRN (09:13)
[2018-03-30] MEDS ORDERED: Tolvaptan 15 MG TABLET PO ONE (10:41)
--- NOTE | 2018-03-30 10:44 | Nephrology Progress Note ---
Date of Encounter: 03/30/18 Time of Encounter: 10:25 - Assessment and Plan (1) Hyponatremia Current Visit: Yes Status: Acute Multifactorial hyponatremia: recommend placing zhu, continue periodic Tolvaptan, and changing the Bactrim IV vehicle to a non-hypotonic solution such as 0.9% instead of the D5W. Continue Salt tablets. Will remeasure spot U Na in AM and spot U Omso too. Continue to closely follow the PNa levels and if she deteriorates or becomes symptomatic, then would recommend 3%. Discussed in detail with the pt, her son, and the Hospitalist. I called and left a message with the inpatient Pharmacist, re: Bactrim vehicle. (2) CVA (cerebral vascular accident) Current Visit: Yes Status: Chronic HX of, per primary. Qualifiers: CVA mechanism: unspecified Qualified Code(s): I63.9 - Cerebral infarction, unspecified (3) History of craniotomy Current Visit: Yes Status: Acute Could be a determining factor to hyponatremia. Subjective Principal diagnosis: Hyponatremia Interval history: Pt was s/e and she did not affirm any change in confusion or seizures. Her son was present. She reported left sided "hip" pain, which I'll defer to the primary team. Objective - Vital Signs Vital signs: Vital Signs Temp Pulse Resp BP Pulse Ox 03/30/18 10:32 97.6 F 82 18 99/64 92 03/30/18 06:26 97.3 F L 81 18 111/77 93 03/30/18 03:46 97.3 F L 54 16 106/74 94 03/30/18 00:30 96 F L 63 16 147/76 94 03/29/18 19:55 93 03/29/18 17:42 97.6 F 69 18 123/66 93 03/29/18 14:24 97.7 F 85 18 158/100 94 03/29/18 10:57 97.9 F 80 18 101/61 91 Intake and Output 03/29/18 03/30/18 03/30/18 23:59 07:59 15:59 Intake Total 2157.0 / 2157.0 523.5 / 523.5 386 / 386 Balance 2157.0 / 2157.0 523.5 / 523.5 386 / 386 Intake: IV Fluids 1797.0 / 1797.0 523.5 / 523.5 286 / 286 Bactrim 800MG/160MG/10ML 23.5 797.0 / 797.0 523.5 / 523.5 286 / 286 ML In Dextrose 5% 500 ML @ 250 mls/hr IVPB Q8H MELISSA Rx#: [id number] Oral 360 / 360 100 / 100 Other: Meal Dinner Breakfast Percent of Meal Consumed 10% 10% # Voids 1 Weight 72.573 kg Patient Weight 03/30/18 23:59 Weight 72.573 kg - General Appearance General appearance: Present: well-developed, well-nourished, appears started age EENT: Present: ATNC, PERRL, mucous membranes moist Neck: Present: supple Respiratory: Present: course breath sounds (fine rhonchi that clear with coughing) Cardiology: Present: no edema, normal S1, normal S2 Gastrointestinal: Present: normoactive bowel sounds, no tenderness, no guarding Integumentary: Present: warm and dry Neurologic: Present: no focal deficit, no asterixis, alert and oriented x3 Musculoskeletal: Present: no cyanosis, no clubbing Psychiatric: Present: mood/affect appropriate, cooperative - Lab 04/03/18 04:00 04/03/18 05:25 Most recent lab results Calcium 8.5 mg/dL (8.6-10.3) L 03/30/18 02:17 Magnesium 1.7 mg/dL (1.6-2.6) 03/30/18 02:17 Urine Sodium 178.4 mEq/L 03/29/18 05:30 Consult Discharge Plan - Plan Referrals: Indigo Louis CNP [Primary Care Provider] -
[2018-03-30] MEDS ORDERED: TRIMETH IVPB SCH (11:15)
[2018-03-30] MEDS ORDERED: SODIUM CHLORIDE 0.9% IVPB SCH (11:15)
[2018-03-30] MEDS ORDERED: SULFAMETHOXAZOLE IVPB SCH (11:15)
--- NOTE | 2018-03-30 13:19 | Internal Med Progress Note ---
<Rosendo Weir - Last Filed: 03/30/18 17:12> Hospitalist Progress Note - Encounter Date of Encounter: 03/30/18 - Exam Vitals: Temp Pulse Resp BP Pulse Ox 97.8 F 101 18 105/71 97 03/30/18 14:45 03/30/18 14:45 03/30/18 14:45 03/30/18 14:45 03/30/18 14:45 - Assessment and Plan (1) CVA (cerebral vascular accident) Current Visit: No Status: Acute (2) Hypertension Current Visit: No Status: Chronic (3) DVT prophylaxis Current Visit: No Status: Acute (4) Hyponatremia Current Visit: Yes Status: Acute (5) History of brain surgery Current Visit: Yes Status: Acute (6) Tobacco abuse Current Visit: No Status: Chronic (7) Salmonella meningitis Current Visit: Yes Status: Acute Assessment and Plan: On IV Bactrim - Time Spent with Patient Total time spent is greater than 50% in coordination of care (as documented) at patient's floor/unit and/or counseling patient: Internal Medicine: Result - Labs CBC & Chem 7: 03/30/18 02:17 03/30/18 15:30 Labs: Short CBC 03/30/18 Range/Units 02:17 WBC 3.7 L (4.3-11.1) K/mcL Hgb 10.8 L (11.5-15.4) g/dL Hct 31.9 L (35.3-44.9) % Plt Count 193 (140-400) K/mcL BMP 03/29/18 03/29/18 03/30/18 18:10 22:50 02:17 Sodium 115 L* 115 L* 115 L* Potassium 3.9 Chloride 87 L Carbon Dioxide 19 L BUN 8 Creatinine 0.59 L Glucose 110 H Calcium 8.5 L 03/30/18 03/30/18 03/30/18 06:28 10:30 15:30 Sodium 115 L* 117 L* 120 L* Potassium Chloride Carbon Dioxide BUN Creatinine Glucose Calcium - ABG Interpretation ABG results: PT/INR, D-dimer PT 12.1 Seconds (9.4-12.1) 03/29/18 03:46 Consult Discharge Plan - Plan Referrals: Indigo Louis, COLLAR TRIMMER [Primary Care Provider] - - Attending Attestation I examined this patient and my medical decision-making was reviewed with the Resident Physician on 03/30/18. I agree with the documented findings, disposition and treatment plan as described except to the extent set forth below. Ms Rondon is currently admitted for hyponatremia and falls. She remains moderate to high risk due to potential for worsening clinical status. Ms Rondon is feeling OK. No CP or SOB. Feels tired and weak. No GI issues. Exam Alert Comfortable in bed Mucus membranes dry Heart reg and not tachy Lungs clear Abd soft No edema I/P 1. Hyponatremia - very complicated with multiple reasons. Appreciate nephro help 2. 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 <Julita Fisher - Last Filed: 03/30/18 19:02> Hospitalist Progress Note - Encounter Date of Encounter: 03/30/18 Time of Encounter: 09:47 - Subjective Interval History: Marva Rondon is a 62 YOF with a history of recent crainiotomy 4 weeks ago d/t salmonella infection of the brain and was placed on Cipro for 2 weeks, which was switched to Bactrim d/t hallucinations per patient report. Patient has now been on Bactrim for 2 weeks and continues to have hallucinations, however less frequently. She was scheduled to follow up at [facility] for multiple visits today, but d/t being hospitalized she was unable to make these appointments. She was also started on HCTZ appoximately 2 weeks ago, which she took for about 7 days and then self discontinued d/t increased urinary frequency. Patient presented to the ED d/t increased falls that have become much more frequent over the past 3 days, typically occurring when changing from a lying to standing position. Upon presntation she was found to be severely hyponatremic with a sodium level of 117. She admitted to occasional hallucinations and frequent falls with left hip pain. Imaging was negative for any acute fractures or brain bleeds. She reports pain to her left upper thigh from where she fell, but otherwise had no complaints. She denies any SOB, CP, dyspnea, confusion, lightheadedness, dizziness, increased thirst, dysuria or hematuria. - Exam Vitals: Temp Pulse Resp BP Pulse Ox 97.6 F 82 18 99/64 92 03/30/18 10:32 03/30/18 10:32 03/30/18 10:32 03/30/18 10:32 10 10:32 Exam: General: Alert and oriented, NAD. Appeared tired and was falling asleep during the examination HEENT:EOMI, atraumatic, normocephalic Cardiovascular:RRR, normal S1 & S2, No JVD. Lungs: CTAB, no wheezes Abdomen:Soft, non-tender, BS noted, no guarding Extremities:Tender to palpation of the left upper thigh, no swelling in b/l LE Neurological: No focal deficits Skin: Warm, dry Psych: Answers questions appropriately. 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 Na 117 on presentation, 115 today Urine osmo 561 Urine Na 178.4 Serum osmo 245 Random cortisol 31.3 Uric acid <1.5 Nephrology following - continue Q4 hour serum sodium - D/C IVF - continue salt tabs TID - 1.5L fluid restriction - Allow salt in diet - CT chest w/o contrast to r/o malignancy (pending) Holding HCTZ d/t hyponatremia Continue Bactrim in non-hypotonic soln per nephro and [facility] until [facility] (2) History of craniotomy Current Visit: Yes Status: Acute Assessment and Plan: Salmonella infection s/p craniotomy 4 weeks ago Contacted [facility] infectious disease, patient scheduled to see Dr. 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 Stable. Holding HCTZ d/t hyponatremia (5) Tobacco abuse Current Visit: No Status: Resolved Assessment and Plan: Current 1ppd smoker Continue nicotine patch Will continue to activities counselor on smoking cessation DVT Prophylaxis: SCDs d/t recent craniotomy - Time Spent with Patient Total time spent is greater than 50% in coordination of care (as documented) at patient's floor/unit and/or counseling patient: Internal Medicine: Result - Labs CBC & Chem 7: 03/30/18 02:17 03/30/18 15:30 Labs: Short CBC 03/30/18 Range/Units 02:17 WBC 3.7 L (4.3-11.1) K/mcL Hgb 10.8 L (11.5-15.4) g/dL Hct 31.9 L (35.3-44.9) % Plt Count 193 (140-400) K/mcL BMP 03/29/18 03/29/18 03/29/18 12:20 18:10 22:50 Sodium 115 L* 115 L* 115 L* Potassium Chloride Carbon Dioxide BUN Creatinine Glucose Calcium 03/30/18 03/30/18 03/30/18 02:17 06:28 10:30 Sodium 115 L* 115 L* 117 L* Potassium 3.9 Chloride 87 L Carbon Dioxide 19 L BUN 8 Creatinine 0.59 L Glucose 110 H Calcium 8.5 L - ABG Interpretation ABG results: PT/INR, D-dimer PT 12.1 Seconds (9.4-12.1) 03/29/18 03:46 <Rosendo Weir - Last Filed: 03/30/18 17:12> (1) CVA (cerebral vascular accident) Qualifiers: CVA mechanism: unspecified Qualified Code(s): I63.9 - Cerebral infarction, unspecified (2) Hypertension Qualifiers: Hypertension type: essential hypertension Qualified Code(s): I10 - Essential (primary) hypertension <Julita Fisher - Last Filed: 03/30/18 19:02> (3) CVA (cerebral vascular accident) Qualifiers: CVA mechanism: unspecified Qualified Code(s): I63.9 - Cerebral infarction, unspecified (4) Hypertension Qualifiers: Hypertension type: essential hypertension Qualified Code(s): I10 - Essential (primary) hypertension
[2018-03-30] MEDS: SODIUM CHLORIDE 0.9% IVPB SCH (16:48)
[2018-03-30] MEDS ORDERED: D5% in Water 1,000 ML IVC SCH (23:30)
[2018-03-31 00:45] LABS: Basophils % 0.3 %; Eosinophils # 0.1 K/mcL (0.0-0.6); Eosinophils % 1.9 %; Hematocrit 31.4 % (35.3-44.9); Hemoglobin 10.6 g/dL (11.5-15.4); Immature Granulocytes % 0.3 % (0-4); Lymphocytes # 0.8 K/mcL (0.6-4.6); Lymphocytes % 21.9 %; Mean Corpuscular HGB Conc 33.8 g/dL (31.6-35.5); Mean Corpuscular Hemoglobin 29.1 pg (28.0-33.3); Mean Corpuscular Volume 86.3 fL (83.0-100.0); Mean Platelet Volume 9.1 fL (9.4-12.4); Monocytes # 0.3 K/mcL (0.0-1.3); Monocytes % 6.9 %; Neutrophils # 2.5 K/mcL (1.6-8.9); Platelet Count 173 K/mcL (140-400); Red Blood Count 3.64 M/mcL (3.82-4.97); Red Cell Distribution Width 15.9 % (11.5-14.5); Segmented Neutrophils % 68.7 %
[2018-03-31 00:53] LABS: BUN/Creatinine Ratio 14 (6-26); Blood Urea Nitrogen 11 mg/dL (8-23); Calcium 8.8 mg/dL (8.6-10.3); Carbon Dioxide 22 mEq/L (23-29); Chloride 97 mEq/L (98-107); Glucose 101 mg/dL (70-105); Osmolality,Calculated 264 (280-300); Potassium 4.3 mEq/L (3.5-5.1); Sodium 127 mEq/L (136-145); eGFR For Non-African Americans > 60 (> 60)
[2018-03-31] MEDS: SULFAMETHOXAZOLE IVPB SCH ×3 (01:03→21:26)
[2018-03-31] MEDS: TRIMETH IVPB SCH ×3 (01:03→21:26)
[2018-03-31] MEDS: SODIUM CHLORIDE 0.9% IVPB SCH ×3 (01:03→21:26)
[2018-03-31] MEDS ORDERED: D5% in Water 1,000 ML IVC SCH (02:30)
[2018-03-31] MEDS ORDERED: WATER IVPB SCH (03:30)
[2018-03-31] MEDS ORDERED: SULFAMETHOXAZOLE IVPB SCH (03:30)
[2018-03-31] MEDS ORDERED: D5 IVPB SCH (03:30)
[2018-03-31] MEDS ORDERED: TRIMETH IVPB SCH (03:30)
[2018-03-31] MEDS: *HR* OxyCODONE Immed Rel 5 MG TABLET PO PRN (05:41)
[2018-03-31] MEDS: Aspirin Enteric Coated 81 MG Tablet PO SCH (08:07)
[2018-03-31] MEDS: Nicotine 21 MG PATCH.TD24 TD SCH (08:07)
--- NOTE | 2018-03-31 09:21 | Nephrology Progress Note ---
Date of Encounter: 03/31/18 Time of Encounter: 10:10 - Assessment and Plan (1) Hyponatremia Current Visit: Yes Status: Acute She has started to respond in terms of the hyponatremia especially after placing the zhu catheter. In some patients hyponatremia will occur with a partial urinary tract obstruction. She improved to about 10mEq this AM from last AM, but overnight I discussed with the floor RN and night hospitalist around midnight to put the brakes, so to speak, on the rate of correction. I recommend a slow, safe correction and so D5W was started in the middle of the night. Today, I will have her resume the fluid restriction, NaCl tablets but no need for Tolvaptan today. Keep the zhu today as well. Will also stop the D5W to allow her to resume a slow, safe correction of the hyponatremia. Additionally, the Bactrim IV can also be changed back to a vehicle with 0.9% saline. Thank you BMP ordered for this afternoon. Now that she has started to improve, she will not need so frequent of PNa checks, so I have spaced this out. Thank you. Subjective Principal diagnosis: Hyponatremia Interval history: Pt was s/e. She and her son reported that she was feeling relatively okay but that her left side hip is still bothering her. She did not affirm hyponatremia related signs/symptoms such as seizures, N/V, confusion. Objective - Vital Signs Vital signs: Vital Signs Temp Pulse Resp BP Pulse Ox 03/31/18 07:35 97.4 F L 64 18 95/62 94 03/31/18 03:42 97.7 F 82 17 100/69 90 03/31/18 00:22 98.1 F 69 17 108/67 93 03/30/18 20:03 93 03/30/18 18:33 98.2 F 77 17 107/72 93 03/30/18 14:45 97.8 F 101 18 105/71 97 03/30/18 10:32 97.6 F 82 18 99/64 92 Intake and Output 03/30/18 03/31/18 03/31/18 23:59 07:59 15:59 Intake Total 643.5 / 643.5 0 / 0 1057.5 / 1057.5 Output Total 850 / 850 950 / 950 Balance -206.5 / -206.5 -950 / -950 1057.5 / 1057.5 Intake: IV Fluids 523.5 / 523.5 0 / 0 1057.5 / 1057.5 Dextrose 5% 1,000 ML @ 75 mls/ 534 / 534 hr IVC .[id number] [facility] Rx#: [id number] Bactrim 800MG/160MG/10ML 23.5 523.5 / 523.5 0 / 0 ML In 0.9 % Sodium Chloride 500 ML @ 250 mls/hr IVPB Q8H [facility] Rx#:[id number] Bactrim 800MG/160MG/10ML 23.5 523.5 / 523.5 ML In Dextrose 5% 500 ML @ 250 mls/hr IVPB Q8H [facility] Rx#: [id number] Oral 120 / 120 Output: Catheter 850 / 850 950 / 950 Other: Meal Dinner Percent of Meal Consumed 75% Weight 72.573 kg Patient Weight 03/31/18 23:59 Weight 72.573 kg - General Appearance Exam: General appearance: Present: well-developed, well-nourished, appears started age EENT: Present: ATNC, PERRL, mucous membranes moist Neck: Present: supple Respiratory: Present: course breath sounds (fine rhonchi that clear with coughing, consistent with her hx of smoking) Cardiology: Present: no edema, normal S1, normal S2 Gastrointestinal: Present: normoactive bowel sounds, no tenderness, no guarding Integumentary: Present: warm and dry Neurologic: Present: no focal deficit, no asterixis, alert and oriented x3 Musculoskeletal: Present: no cyanosis, no clubbing Psychiatric: Present: mood/affect appropriate, cooperative - Lab 04/03/18 04:00 04/03/18 05:25 Most recent lab results Calcium 8.8 mg/dL (8.6-10.3) 03/31/18 00:18 Magnesium 1.7 mg/dL (1.6-2.6) 03/30/18 02:17 Urine Sodium 25.6 mEq/L 03/31/18 03:20 Consult Discharge Plan - Plan Referrals: Indigo Louis CNP [Primary Care Provider] -
--- NOTE | 2018-03-31 10:57 | Electrocardiograph Report ---
[address] [address] Test Date: 2018-03-29 Pat Name: Marva Rondon Department: EXAM3 Room: [facility] Gender: F Peanut Roaster: : 1955 Requested By: Pastor Escamilla Order Number: [id number] Reading MD: Carlee Teresa Measurements Intervals [place] Rate: 66 P: LA: QRS: 42 QRSD: 93 T: 30 QT: 411 QTc: 431 Interpretive Statements Sinus rhythm Electronically Signed On 03-31-2018 10:55:52 EDT by Carlee Teresa
--- NOTE | 2018-03-31 13:21 | Internal Med Progress Note ---
<Rosendo Weir - Last Filed: 03/31/18 16:32> Hospitalist Progress Note - Encounter Date of Encounter: 03/31/18 - Exam Vitals: Temp Pulse Resp BP Pulse Ox 97.6 F 76 16 107/71 95 03/31/18 15:32 03/31/18 15:32 03/31/18 15:44 03/31/18 15:32 03/31/18 15:44 - Assessment and Plan (1) Hyponatremia Current Visit: Yes Status: Acute (2) CVA (cerebral vascular accident) Current Visit: Yes Status: Chronic (3) Hypertension Current Visit: Yes Status: Chronic (4) DVT prophylaxis Current Visit: No Status: Acute (5) History of brain surgery Current Visit: Yes Status: Acute (6) Tobacco abuse Current Visit: No Status: Resolved (7) Salmonella meningitis Current Visit: Yes Status: Acute (8) COPD (chronic obstructive pulmonary disease) Current Visit: No Status: Suspected - Time Spent with Patient Total time spent is greater than 50% in coordination of care (as documented) at patient's floor/unit and/or counseling patient: Internal Medicine: Result - Labs CBC & Chem 7: 03/31/18 00:18 03/31/18 08:05 Labs: Short CBC 03/31/18 Range/Units 00:18 WBC 3.6 L (4.3-11.1) K/mcL Hgb 10.6 L (11.5-15.4) g/dL Hct 31.4 L (35.3-44.9) % Plt Count 173 (140-400) K/mcL Neutrophils # 2.5 (1.6-8.9) K/mcL BMP 03/30/18 03/31/18 03/31/18 19:47 00:18 08:05 Sodium 125 L 127 L 125 L Potassium 4.3 Chloride 97 L Carbon Dioxide 22 L BUN 11 Creatinine 0.81 Glucose 101 Calcium 8.8 - ABG Interpretation ABG results: PT/INR, D-dimer PT 12.1 Seconds (9.4-12.1) 03/29/18 03:46 - Impressions Impressions Chest CT 03/30/18 18:51 IMPRESSION: 1. Scattered ground-glass peribronchial infiltrates are noted in the upper lobes bilaterally, right side greater than left, concerning for underlying pneumonia. 2. Centrilobular and paraseptal emphysema. 3. 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 4. Atherosclerotic disease. D/ / 03/30/2018 22:18:04 Tayo Rivers MD / radha Interpreting Provider: Tayo Rivers MD Consult Discharge Plan - Plan Referrals: Indigo Louis, RN ACLS [Primary Care Provider] - - Attending Attestation I examined this patient and my medical decision-making was reviewed with the Resident Physician on 03/31/18. I agree with the documented findings, disposition and treatment plan as described except to the extent set forth below. Ms Rondon is currently admitted for severe hyponatremia. She is continuing to have L hip. She remains moderate to high risk due to potential for worsening clinical symptoms. Ms Rondon is complaining of L hip and buttocks pain. No fever or chills. Na is up today. No GI issues. No CP or SOB. Exam alert Comfortable in bed Mucus membranes dry Heart distant Some end exp wheeze heard Abd soft NO edema Tender L buttocks area I/P 1. Hyponatremia - appreciate nephrology help. 2. L hip pain - check CT 3. Add aerosols. 4. Smoker Further diagnoses and plan as above. <Julita Fisher - Last Filed: 03/31/18 20:04> Hospitalist Progress Note - Encounter Date of Encounter: 03/31/18 Time of Encounter: 10:32 - Subjective Interval History: Marva Rondon is a 62 YOF with a history of recent crainiotomy 4 weeks ago d/t salmonella infection of the brain and was placed on Cipro for 2 weeks, which was switched to Bactrim d/t hallucinations per patient report. Patient has now been on Bactrim for 2 weeks and continues to have hallucinations, however less frequently. She was scheduled to follow up at [facility] for multiple visits today, but d/t being hospitalized she was unable to make these appointments. She was also started on HCTZ appoximately 2 weeks ago, which she took for about 7 days and then self discontinued d/t increased urinary frequency. Patient presented to the ED d/t increased falls that have become much more frequent over the past 3 days, typically occurring when changing from a lying to standing position. Upon presntation she was found to be severely hyponatremic with a sodium level of 117. She admitted to occasional hallucinations and frequent falls with left hip pain. Imaging was negative for any acute fractures or brain bleeds. She continues to complain of pain in her left upper thigh from where she fell, but otherwise had no complaints. She denies any SOB, CP, dyspnea, confusion, lightheadedness, dizziness, increased thirst, dysuria or hematuria. - Exam Vitals: Temp Pulse Resp BP Pulse Ox 97.8 F 92 17 107/57 98 03/31/18 11:32 03/31/18 11:58 03/31/18 11:32 03/31/18 11:58 03/31/18 11:32 Exam: General: NAD. Lying comfortably in bed. Was more alert than yesterday. HEENT:EOMI, atraumatic, normocephalic Cardiovascular:RRR, normal S1 & S2, No JVD. Lungs: Bilateral crackles in the bases Abdomen:Soft, non-tender, BS noted, no guarding Extremities:Tender to palpation of the left upper thigh, no swelling in b/l LE Neurological: No focal deficits Skin: Warm, dry Psych: Answers questions appropriately. 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 Correct from 115 to 125 overnight, requiring D5W, NaCl tabs were held. Na 117 on presentation, 125 today Urine osmo 561-> 155 Urine Na 178.4 -> 25.6 Serum osmo 245 -> 264 Random cortisol 31.3 Uric acid <1.[address] negative for signs of malignancy Nephrology following - recheck BMP in the AM - discontinue IVFs - resume salt tabs - resume 1.5L fluid restriction Holding HCTZ d/t hyponatremia Continue Bactrim in non-hypotonic soln per nephro and [facility] (2) History of craniotomy Current Visit: Yes Status: Acute Assessment and Plan: Salmonella infection s/p craniotomy 4 weeks ago Contacted [facility] infectious disease, patient scheduled to see Dr. 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 Stable. Holding HCTZ d/t hyponatremia (5) Tobacco abuse Current Visit: Yes Status: Chronic Assessment and Plan: Current 1ppd smoker Continue nicotine patch Will continue to cancer genetic counselor on smoking cessation - Time Spent with Patient Total time spent is greater than 50% in coordination of care (as documented) at patient's floor/unit and/or counseling patient: 25 - 35 minutes Internal Medicine: Result - Labs CBC & Chem 7: 03/31/18 00:18 03/31/18 16:00 Labs: Short CBC 03/31/18 Range/Units 00:18 WBC 3.6 L (4.3-11.1) K/mcL Hgb 10.6 L (11.5-15.4) g/dL Hct 31.4 L (35.3-44.9) % Plt Count 173 (140-400) K/mcL Neutrophils # 2.5 (1.6-8.9) K/mcL BMP 03/30/18 03/30/18 03/31/18 15:30 19:47 00:18 Sodium 120 L* 125 L 127 L Potassium 4.3 Chloride 97 L Carbon Dioxide 22 L BUN 11 Creatinine 0.81 Glucose 101 Calcium 8.8 03/31/18 08:05 Sodium 125 L Potassium Chloride Carbon Dioxide BUN Creatinine Glucose Calcium - ABG Interpretation ABG results: PT/INR, D-dimer PT 12.1 Seconds (9.4-12.1) 03/29/18 03:46 - Impressions Impressions Chest CT 03/30/18 18:51 IMPRESSION: 1. Scattered ground-glass peribronchial infiltrates are noted in the upper lobes bilaterally, right side greater than left, concerning for underlying pneumonia. 2. Centrilobular and paraseptal emphysema. 3. 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 4. Atherosclerotic disease. D/ / 03/30/2018 22:18:04 Tayo Rivers MD / radha Interpreting Provider: Tayo Rivers MD <Rosendo Weir - Last Filed: 03/31/18 16:32> (2) CVA (cerebral vascular accident) Qualifiers: CVA mechanism: unspecified Qualified Code(s): I63.9 - Cerebral infarction, unspecified (3) Hypertension Qualifiers: Hypertension type: essential hypertension Qualified Code(s): I10 - Essential (primary) hypertension (8) COPD (chronic obstructive pulmonary disease) Qualifiers: COPD type: unspecified COPD Qualified Code(s): J44.9 - Chronic obstructive pulmonary disease, unspecified <Julita Fisher - Last Filed: 03/31/18 20:04> (3) CVA (cerebral vascular accident) Qualifiers: CVA mechanism: unspecified Qualified Code(s): I63.9 - Cerebral infarction, unspecified (4) Hypertension Qualifiers: Hypertension type: essential hypertension Qualified Code(s): I10 - Essential (primary) hypertension
[2018-03-31] MEDS: Ringers Solution, Lactated 1,000 ML IVC SCH (13:46)
[2018-03-31] MEDS ORDERED: Isovue-370 500 ML INFUS..BTL IV ONE (15:10)
[2018-03-31] MEDS: Ipratropium/Albuterol Neb 3 ML IH SCH ×3 (15:43→23:55)
[2018-03-31] MEDS: *HR* HYDROcodone/Acet 5/325 mg TABLET PO PRN (15:52)
[2018-03-31] MEDS: Ondansetron 4 MG/2 ML VIAL IVP PRN (17:46)
[2018-04-01] MEDS: *HR* HYDROcodone/Acet 5/325 mg TABLET PO PRN ×3 (00:39→20:19)
[2018-04-01] MEDS: Ringers Solution, Lactated 1,000 ML IVC SCH ×2 (04:58→18:09)
[2018-04-01] MEDS: SODIUM CHLORIDE 0.9% IVPB SCH ×3 (04:58→20:17)
[2018-04-01] MEDS: TRIMETH IVPB SCH ×3 (04:58→20:17)
[2018-04-01] MEDS: SULFAMETHOXAZOLE IVPB SCH ×3 (04:58→20:17)
[2018-04-01 05:19] LABS: Basophils % 1.2 %; Eosinophils # 0.1 K/mcL (0.0-0.6); Hematocrit 28.8 % (35.3-44.9); Hemoglobin 9.3 g/dL (11.5-15.4); Immature Granulocytes % 0.4 % (0-4); Lymphocytes # 0.8 K/mcL (0.6-4.6); Lymphocytes % 32.7 %; Mean Corpuscular HGB Conc 32.3 g/dL (31.6-35.5); Mean Corpuscular Hemoglobin 29.2 pg (28.0-33.3); Mean Corpuscular Volume 90.3 fL (83.0-100.0); Mean Platelet Volume 9.4 fL (9.4-12.4); Monocytes # 0.2 K/mcL (0.0-1.3); Monocytes % 8.5 %; Neutrophils # 1.3 K/mcL (1.6-8.9); Platelet Count 146 K/mcL (140-400); Red Blood Count 3.19 M/mcL (3.82-4.97); Segmented Neutrophils % 53.2 %
[2018-04-01 05:32] LABS: BUN/Creatinine Ratio 13 (6-26); Blood Urea Nitrogen 8 mg/dL (8-23); Calcium 8.3 mg/dL (8.6-10.3); Carbon Dioxide 24 mEq/L (23-29); Chloride 102 mEq/L (98-107); Glucose 79 mg/dL (70-105); Osmolality,Calculated 269 (280-300); Potassium 4.2 mEq/L (3.5-5.1); Sodium 131 mEq/L (136-145); eGFR For Non-African Americans > 60 (> 60)
[2018-04-01] MEDS: Ipratropium/Albuterol Neb 3 ML IH SCH ×5 (05:45→20:01)
[2018-04-01] MEDS: Ondansetron 4 MG/2 ML VIAL IVP PRN (08:59)
--- NOTE | 2018-04-01 12:01 | Nephrology Progress Note ---
Date of Encounter: 04/01/18 Time of Encounter: 11:25 - Assessment and Plan (1) Hyponatremia Current Visit: Yes Status: Acute Slowly and safely correcting with a PNa of 131, which is up from 125 about 24hr ago, which is a slow and safe rate of correction. She remains asymptomatic from the hyponatremia, which is reassuring, however I see that her lumbar spine has been found to be linked to her left hip pain that she was reporting last week. Nevertheless, I recommending continuing the course of F.R. at 1500mL/day, NaCl 1gm po tid and avoiding hypotonic fluids as able as well as Rx associated with hyponatremia such ast HCTZ, SSRI, etc. My colleague Dr. Monreal will be on-call starting tomorrow (Monday). Thank you. Subjective Principal diagnosis: Hyponatremia Interval history: Pt was seen/examined. She said that imaging revealed a thoracic spine problem. She did not affirm N/V or other major complaints/signs/symptoms related to hyponatremia. Objective - Vital Signs Vital signs: Vital Signs Temp Pulse Resp BP Pulse Ox 04/01/18 10:40 97.5 F L 62 16 109/69 98 04/01/18 07:57 16 92 04/01/18 07:38 97.5 F L 67 16 101/67 97 04/01/18 03:37 97.8 F 59 15 111/71 93 03/31/18 23:40 97.5 F L 67 17 107/71 97 03/31/18 20:24 97.9 F 70 16 104/69 94 03/31/18 20:19 98.0 F 84 16 139/67 95 03/31/18 20:10 18 93 03/31/18 15:44 16 95 03/31/18 15:32 97.6 F 76 16 107/71 95 Intake and Output 03/31/18 04/01/18 04/01/18 23:59 07:59 15:59 Intake Total 1023.5 / 1023.5 1158.5 / 1158.5 237 / 237 Output Total 1000 / 1000 1250 / 1250 Balance 23.5 / 23.5 -91.5 / -91.5 237 / 237 Intake: IV Fluids 913.5 / 913.5 1133.5 / 1133.5 Lactated Ringers 1,000 ML @ 75 390 / 390 610 / 610 mls/hr IVC .[id number] [facility] Rx#: [id number] Bactrim 800MG/160MG/10ML 23.5 523.5 / 523.5 523.5 / 523.5 ML In 0.9 % Sodium Chloride 500 ML @ 250 mls/hr IVPB Q8H [facility] Rx#:[id number] Oral 110 / 110 25 / 25 237 / 237 Output: Urine 0 / 0 Catheter 1000 / 1000 1250 / 1250 Urethral (Mendieta) 800 / 800 Other: Meal Dinner Percent of Meal Consumed 40% # Voids 1 # Bowel Movements 1 - General Appearance Exam: General appearance: Present: well-developed, well-nourished, appears started age EENT: Present: ATNC, PERRL, mucous membranes moist Neck: Present: supple Respiratory: Present: course breath sounds (fine rhonchi that clear with coughing) Cardiology: Present: no edema, normal S1, normal S2 Gastrointestinal: Present: normoactive bowel sounds, no tenderness, no guarding Integumentary: Present: warm and dry Neurologic: Present: no focal deficit, no asterixis, alert and oriented x3 Musculoskeletal: Present: no cyanosis, no clubbing Psychiatric: Present: mood/affect appropriate, cooperative - Lab 04/03/18 04:00 04/03/18 05:25 Most recent lab results Calcium 8.3 mg/dL (8.6-10.3) L 04/01/18 05:00 Magnesium 1.7 mg/dL (1.6-2.6) 03/30/18 02:17 Urine Sodium 25.6 mEq/L 03/31/18 03:20 Consult Discharge Plan - Plan Referrals: Indigo Louis PIANO TECHNICIAN [Primary Care Provider] -
--- NOTE | 2018-04-01 12:16 | Internal Med Progress Note ---
<Julita Fisher - Last Filed: 04/01/18 13:37> Hospitalist Progress Note - Encounter Date of Encounter: 04/01/18 Time of Encounter: 08:47 - Subjective Interval History: Marva Rondon is a 62 YOF with a history of recent crainiotomy 4 weeks ago d/t salmonella infection of the brain and was placed on Cipro for 2 weeks, which was switched to Bactrim d/t hallucinations per patient report. Patient has now been on Bactrim for 2 weeks and continues to have hallucinations, however less frequently. She was scheduled to follow up at [facility] for multiple visits, but d/t being hospitalized she was unable to make these appointments. She was also started on HCTZ appoximately 2 weeks ago, which she took for about 7 days and then self discontinued d/t increased urinary frequency. Patient presented to the ED d/t increased falls that have become much more frequent over the past 3 days, typically occurring when changing from a lying to standing position. Upon presntation she was found to be severely hyponatremic with a sodium level of 117. She admitted to occasional hallucinations and frequent falls with left hip pain. Imaging was negative for any acute fractures or brain bleeds. She continues to have pain in her left hip and CT showed an acute L4 compression fracture. She denies any SOB, CP, dyspnea, confusion, lightheadedness, dizziness, increased thirst, dysuria or hematuria. - Exam Vitals: Temp Pulse Resp BP Pulse Ox 97.5 F L 62 16 109/69 98 04/01/18 10:40 04/01/18 10:40 04/01/18 10:40 04/01/18 10:40 04/01/18 10:40 Exam: General: NAD. Lying comfortably in bed. Appeared tired today. HEENT:EOMI, atraumatic, normocephalic Cardiovascular: RRR, normal S1 & S2, No JVD. Lungs: Bilateral crackles in the bases, unchanged from yesterday Abdomen: Soft, non-tender, BS noted, no guarding Extremities:Tender to palpation of the left upper thigh, no swelling in b/l LE Neurological: No focal deficits Skin: Warm, dry Psych: Answers questions appropriately. 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 Na 117 on presentation, 131 today Urine osmo 561-> 155 Urine Na 178.4 -> 25.6 Serum osmo 245 -> 264 -> 269 today Random cortisol 31.3 Uric acid <1.[address] negative for signs of malignancy Nephrology following - recheck BMP in the AM - continue salt tabs TID - 1.5L fluid restriction Holding HCTZ d/t hyponatremia Continue Bactrim in non-hypotonic soln per nephro and [facility] until [facility] appt (2) Compression fracture of lumbar vertebra Current Visit: Yes Status: Acute Assessment and Plan: Likely as a result of frequent falls secondary to hyponatremia Hip CT 03/31 - Acute compression deformity of the L4 vertebral body with 50% loss of height and 6 mm of retropulsion resulting in mild to moderate central canal stenosis at this level. Patient complaining of back and hip pain that radiates down into the upper left leg Plan to c/s spinal sx for possible repair Continue pain management (3) History of craniotomy Current Visit: Yes Status: Acute Assessment and Plan: Salmonella infection s/p craniotomy 4 weeks ago Contacted [facility] infectious disease, patient scheduled to see Dr. 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 Stable. Holding HCTZ d/t hyponatremia (6) Tobacco abuse Current Visit: Yes Status: Chronic Assessment and Plan: Current 1ppd smoker Continue nicotine patch Will continue to res counselor on smoking cessation Patient interested in trying nicotine patches at home Recommend outpatient follow up with PCP DVT Prophylaxis: SCDs d/t recent craniotomy - Time Spent with Patient Total time spent is greater than 50% in coordination of care (as documented) at patient's floor/unit and/or counseling patient: Internal Medicine: Result - Labs CBC & Chem 7: 04/01/18 05:00 04/01/18 05:00 Labs: Short CBC 04/01/18 Range/Units 05:00 WBC 2.5 L (4.3-11.1) K/mcL Hgb 9.3 L (11.5-15.4) g/dL Hct 28.8 L (35.3-44.9) % Plt Count 146 (140-400) K/mcL Neutrophils # 1.3 L (1.6-8.9) K/mcL BMP 03/31/18 04/01/18 16:00 05:00 Sodium 125 L 131 L Potassium 4.2 Chloride 102 Carbon Dioxide 24 BUN 8 Creatinine 0.63 Glucose 79 Calcium 8.3 L - ABG Interpretation ABG results: PT/INR, D-dimer PT 12.1 Seconds (9.4-12.1) 03/29/18 03:46 - Impressions Impressions Hip CT 03/31/18 15:10 IMPRESSION: 1. Acute compression deformity of the L4 vertebral body with 50% loss of height and 6 mm of retropulsion resulting in mild to moderate central canal stenosis at this level. 2. No acute pelvic fracture identified. 3. Mild degenerative changes of the bilateral hips. D/ / Atif Genao MD / Atif Genao MD Interpreting Provider: Atif Genao MD Consult Discharge Plan - Plan Referrals: Indigo Louis, AGRICULTURAL SCIENTIST [Primary Care Provider] - <Rosendo Weir - Last Filed: 04/01/18 16:46> Hospitalist Progress Note - Encounter Date of Encounter: 04/01/18 - Exam Vitals: Temp Pulse Resp BP Pulse Ox 97.6 F 72 16 118/71 100 04/01/18 15:36 04/01/18 15:36 04/01/18 15:36 04/01/18 15:36 04/01/18 15:36 - Assessment and Plan (1) Compression fracture of lumbar vertebra Current Visit: Yes Status: Acute (2) Hyponatremia Current Visit: Yes Status: Acute (3) CVA (cerebral vascular accident) Current Visit: Yes Status: Chronic (4) Hypertension Current Visit: Yes Status: Chronic (5) DVT prophylaxis Current Visit: No Status: Acute (6) History of brain surgery Current Visit: Yes Status: Acute (7) Tobacco abuse Current Visit: Yes Status: Chronic (8) Salmonella meningitis Current Visit: Yes Status: Acute (9) COPD (chronic obstructive pulmonary disease) Current Visit: No Status: Suspected - Time Spent with Patient Total time spent is greater than 50% in coordination of care (as documented) at patient's floor/unit and/or counseling patient: Internal Medicine: Result - Labs CBC & Chem 7: 04/01/18 05:00 04/01/18 05:00 Labs: Short CBC 04/01/18 Range/Units 05:00 WBC 2.5 L (4.3-11.1) K/mcL Hgb 9.3 L (11.5-15.4) g/dL Hct 28.8 L (35.3-44.9) % Plt Count 146 (140-400) K/mcL Neutrophils # 1.3 L (1.6-8.9) K/mcL BMP 03/31/18 04/01/18 16:00 05:00 Sodium 125 L 131 L Potassium 4.2 Chloride 102 Carbon Dioxide 24 BUN 8 Creatinine 0.63 Glucose 79 Calcium 8.3 L - ABG Interpretation ABG results: PT/INR, D-dimer PT 12.1 Seconds (9.4-12.1) 03/29/18 03:46 - Impressions Impressions Hip CT 03/31/18 15:10 IMPRESSION: 1. Acute compression deformity of the L4 vertebral body with 50% loss of height and 6 mm of retropulsion resulting in mild to moderate central canal stenosis at this level. 2. No acute pelvic fracture identified. 3. Mild degenerative changes of the bilateral hips. D/ / Atif Genao MD / Atif Genao MD Interpreting Provider: Atif Genao MD - Attending Attestation I examined this patient and my medical decision-making was reviewed with the Resident Physician on 04/01/18. I agree with the documented findings, disposition and treatment plan as described except to the extent set forth below. Ms Rondon is currently admitted for hyponatremia. She has been found to have a lumbar compression fracture. She remains moderate to high risk due to potential for worsening clinical status. Ms Rondon feels OK. No fever or chills. Still has L hip pain. No CP or SOB.. Exam alert Comfortable at rest Mucus membranes dry Heart not tachy Lunds diminished Abd soft No edema I/P 1. Hyponatremia 2. Lumbar compression fracture Further diagnoses and plan as above. <Julita Fisher - Last Filed: 04/01/18 13:37> (4) CVA (cerebral vascular accident) Qualifiers: CVA mechanism: unspecified Qualified Code(s): I63.9 - Cerebral infarction, unspecified (5) Hypertension Qualifiers: Hypertension type: essential hypertension Qualified Code(s): I10 - Essential (primary) hypertension <Rosendo Weir A - Last Filed: 04/01/18 16:46> (1) Compression fracture of lumbar vertebra Qualifiers: Encounter type: initial encounter Lumbar vertebra fracture level: L4 Fracture type: closed Qualified Code(s): S32.040A - Wedge compression fracture of fourth lumbar vertebra, initial encounter for closed fracture (3) CVA (cerebral vascular accident) Qualifiers: CVA mechanism: unspecified Qualified Code(s): I63.9 - Cerebral infarction, unspecified (4) Hypertension Qualifiers: Hypertension type: essential hypertension Qualified Code(s): I10 - Essential (primary) hypertension (9) COPD (chronic obstructive pulmonary disease) Qualifiers: COPD type: unspecified COPD Qualified Code(s): J44.9 - Chronic obstructive pulmonary disease, unspecified
[2018-04-01] MEDS: Nicotine 21 MG PATCH.TD24 TD SCH (12:33)
[2018-04-01] MEDS: Aspirin Enteric Coated 81 MG Tablet PO SCH (12:34)
[2018-04-01] MEDS ORDERED: traMADol 50 MG TABLET PO PRN (13:24)
[2018-04-02] MEDS: Ipratropium/Albuterol Neb 3 ML IH SCH ×7 (00:43→23:48)
[2018-04-02] MEDS: SODIUM CHLORIDE 0.9% IVPB SCH ×3 (05:23→20:23)
[2018-04-02] MEDS: SULFAMETHOXAZOLE IVPB SCH ×3 (05:23→20:23)
[2018-04-02] MEDS: TRIMETH IVPB SCH ×3 (05:23→20:23)
[2018-04-02 05:53] LABS: BUN/Creatinine Ratio 17 (6-26); Blood Urea Nitrogen 11 mg/dL (8-23); Calcium 8.3 mg/dL (8.6-10.3); Carbon Dioxide 23 mEq/L (23-29); Chloride 103 mEq/L (98-107); Glucose 91 mg/dL (70-105); Osmolality,Calculated 273 (280-300); Potassium 4.3 mEq/L (3.5-5.1); Sodium 132 mEq/L (136-145); eGFR For Non-African Americans > 60 (> 60)
[2018-04-02] MEDS: Ringers Solution, Lactated 1,000 ML IVC SCH (08:00)
[2018-04-02] MEDS: Cholecalciferol (D-3) 1,000 UNIT TABLET PO SCH (08:01)
[2018-04-02] MEDS: Nicotine 21 MG PATCH.TD24 TD SCH (08:01)
[2018-04-02] MEDS: Aspirin Enteric Coated 81 MG Tablet PO SCH (08:01)
[2018-04-02] MEDS: *HR* HYDROcodone/Acet 5/325 mg TABLET PO PRN (08:06)
[2018-04-02 10:45] LABS: Basophils % 1.4 %; Eosinophils # 0.1 K/mcL (0.0-0.6); Eosinophils % 2.4 %; Hematocrit 26.5 % (35.3-44.9); Hemoglobin 8.4 g/dL (11.5-15.4); Immature Granulocytes % 0.3 % (0-4); Lymphocytes # 0.7 K/mcL (0.6-4.6); Mean Corpuscular HGB Conc 31.7 g/dL (31.6-35.5); Mean Corpuscular Hemoglobin 29.1 pg (28.0-33.3); Mean Corpuscular Volume 91.7 fL (83.0-100.0); Monocytes # 0.2 K/mcL (0.0-1.3); Monocytes % 6.2 %; Neutrophils # 1.9 K/mcL (1.6-8.9); Platelet Count 141 K/mcL (140-400); Red Blood Count 2.89 M/mcL (3.82-4.97); Red Cell Distribution Width 16.2 % (11.5-14.5); Segmented Neutrophils % 66.7 %
--- NOTE | 2018-04-02 10:58 | Internal Med Progress Note ---
<Rosendo Weir - Last Filed: 04/02/18 14:00> Hospitalist Progress Note - Encounter Date of Encounter: 04/02/18 - Exam Vitals: Temp Pulse Resp BP Pulse Ox 98.7 F 89 16 147/86 100 04/02/18 10:51 04/02/18 10:51 04/02/18 10:55 04/02/18 10:51 04/02/18 10:55 - Assessment and Plan (1) Compression fracture of lumbar vertebra Current Visit: Yes Status: Acute (2) Hyponatremia Current Visit: Yes Status: Acute (3) CVA (cerebral vascular accident) Current Visit: Yes Status: Chronic (4) Hypertension Current Visit: Yes Status: Chronic (5) DVT prophylaxis Current Visit: No Status: Acute (6) History of brain surgery Current Visit: Yes Status: Acute (7) Tobacco abuse Current Visit: Yes Status: Chronic (8) Salmonella meningitis Current Visit: Yes Status: Acute (9) COPD (chronic obstructive pulmonary disease) Current Visit: No Status: Suspected - Time Spent with Patient Total time spent is greater than 50% in coordination of care (as documented) at patient's floor/unit and/or counseling patient: Internal Medicine: Result - Labs CBC & Chem 7: 04/02/18 09:18 04/02/18 05:15 Labs: Short CBC 04/02/18 Range/Units 09:18 WBC 2.9 L (4.3-11.1) K/mcL Hgb 8.4 L (11.5-15.4) g/dL Hct 26.5 L (35.3-44.9) % Plt Count 141 (140-400) K/mcL Neutrophils # 1.9 (1.6-8.9) K/mcL BMP 04/02/18 05:15 Sodium 132 L Potassium 4.3 Chloride 103 Carbon Dioxide 23 BUN 11 Creatinine 0.65 Glucose 91 Calcium 8.3 L - ABG Interpretation ABG results: PT/INR, D-dimer PT 12.1 Seconds (9.4-12.1) 03/29/18 03:46 Consult Discharge Plan - Plan Referrals: Indigo Louis, [employer] HOME SALES CONSULTANT [Primary Care Provider] - - Attending Attestation I examined this patient and my medical decision-making was reviewed with the Resident Physician on 04/02/18. I agree with the documented findings, disposition and treatment plan as described except to the extent set forth below. Ms Rondon is currently admitted for hyponatremia and hip pain. She has been found to have L4 compression fracture. She remains moderate to high risk due to potential for worsening clinical status. Ms Rondon feels OK. No fever or chills. Still with L hip pain. No CP or SOB. No GI issues. Exam alert Comfortable Mucus membranes dry Heart distant No wheeze abd soft I/P 1. Hyponatremia - improving with current treatment. 2. L 4 compression fracture acute - ? kyphoplasty. Pt medically ready for discharge to SNF pending eval for kyphoplasty. Further diagnoses and plan as above. <Julita Fisher - Last Filed: 04/02/18 15:02> Hospitalist Progress Note - Encounter Date of Encounter: 04/02/18 Time of Encounter: 08:35 - Subjective Interval History: Marva Rondon is a 62 YOF with a history of recent crainiotomy 4 weeks ago d/t salmonella infection of the brain and was placed on Cipro for 2 weeks, which was switched to Bactrim d/t hallucinations per patient report. Patient has now been on Bactrim for 2 weeks and continues to have hallucinations, however less frequently. She was scheduled to follow up at [facility] for multiple visits, but d/t being hospitalized she was unable to make these appointments. She was also started on HCTZ approximately 2 weeks ago, which she took for about 7 days and then self discontinued d/t increased urinary frequency. Patient presented to the ED d/t increased falls that have become much more frequent over the past 3 days, typically occurring when changing from a lying to standing position. Upon presentation she was found to be hyponatremic with a sodium level of 117. She admitted to occasional hallucinations and frequent falls with left hip pain. She was found on CT of the hip to have an acute L4 compression fracture. She continues to have pain in her left hip. She admits to some dizziness this morning after being bathed and rolling from side to side in her bed. She denies any SOB, CP, dyspnea, confusion, increased thirst, dysuria or hematuria. - Exam Vitals: Temp Pulse Resp BP Pulse Ox 98.7 F 89 16 147/86 99 04/02/18 10:51 04/02/18 10:51 04/02/18 10:51 04/02/18 10:51 04/02/18 10:51 Exam: General: NAD. Lying comfortably in bed. HEENT: EOMI, atraumatic, normocephalic Cardiovascular: RRR, normal S1 & S2, No JVD. Lungs: Bilateral crackles in the bases, unchanged from yesterday Abdomen: Soft, non-tender, BS noted, no guarding Extremities:Tender to palpation of the left upper thigh, no swelling in b/l LE Neurological: No focal deficits Skin: Warm, dry Psych: Answers questions appropriately. - Assessment and Plan (1) Hyponatremia Current Visit: Yes Status: Acute Assessment and Plan: Likely multifactorial, possibly secondary to cerebral salt wasting with recent salmonela infection s/p craniotomy, Bactrim in hypertonic soln, HCTZ, or SIADH. Na 117 on presentation, 132 today Urine osmo 561-> 155 Urine Na 178.4 -> 25.6 Serum osmo 245 -> 264 -> 269 -> 273 today Random cortisol 31.3 Uric acid <1.[address] negative for signs of malignancy Nephrology following - recheck BMP in the AM - continue salt tabs TID - 1.5L fluid restriction Holding HCTZ d/t hyponatremia Continue Bactrim in non-hypotonic soln per nephro and [facility] until [facility] (2) Compression fracture of lumbar vertebra Current Visit: Yes Status: Acute Assessment and Plan: Likely as a result of frequent falls secondary to hyponatremia Hip CT 03/31 - Acute compression deformity of the L4 vertebral body with 50% loss of height and 6 mm of retropulsion resulting in mild to moderate central canal stenosis at this level. Patient complaining of back and hip pain that radiates down into the upper left leg Spinal sx following - Dr. Quinn to see patient today, appreciate recommendations Continue pain management (3) History of craniotomy Current Visit: Yes Status: Acute Assessment and Plan: Salmonella infection s/p craniotomy 4 weeks ago Contacted [facility] infectious disease, patient scheduled to see Dr. 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 Stable. Holding HCTZ d/t hyponatremia (7) Tobacco abuse Current Visit: Yes Status: Chronic Assessment and Plan: Current 1ppd smoker Continue nicotine patch Will continue to drug and alcohol counsellor on smoking cessation Patient interested in trying nicotine patches at home Recommend outpatient follow up with PCP - Time Spent with Patient Total time spent is greater than 50% in coordination of care (as documented) at patient's floor/unit and/or counseling patient: Internal Medicine: Result - Labs CBC & Chem 7: 04/02/18 09:18 04/02/18 05:15 Labs: Short CBC 04/02/18 Range/Units 09:18 WBC 2.9 L (4.3-11.1) K/mcL Hgb 8.4 L (11.5-15.4) g/dL Hct 26.5 L (35.3-44.9) % Plt Count 141 (140-400) K/mcL Neutrophils # 1.9 (1.6-8.9) K/mcL BMP 04/02/18 05:15 Sodium 132 L Potassium 4.3 Chloride 103 Carbon Dioxide 23 BUN 11 Creatinine 0.65 Glucose 91 Calcium 8.3 L - ABG Interpretation ABG results: PT/INR, D-dimer PT 12.1 Seconds (9.4-12.1) 03/29/18 03:46 <Rosendo Weir - Last Filed: 04/02/18 14:00> (1) Compression fracture of lumbar vertebra Qualifiers: Encounter type: subsequent encounter Lumbar vertebra fracture level: L4 Fracture type: closed Fracture healing: with routine healing Qualified Code(s) : S32.040D - Wedge compression fracture of fourth lumbar vertebra, subsequent encounter for fracture with routine healing (3) CVA (cerebral vascular accident) Qualifiers: CVA mechanism: unspecified Qualified Code(s): I63.9 - Cerebral infarction, unspecified (4) Hypertension Qualifiers: Hypertension type: essential hypertension Qualified Code(s): I10 - Essential (primary) hypertension (9) COPD (chronic obstructive pulmonary disease) Qualifiers: COPD type: unspecified COPD Qualified Code(s): J44.9 - Chronic obstructive pulmonary disease, unspecified <Julita Fisher - Last Filed: 04/02/18 15:02> (2) Compression fracture of lumbar vertebra Qualifiers: Encounter type: subsequent encounter Lumbar vertebra fracture level: L4 Fracture type: closed Fracture healing: with routine healing (4) Neutropenia Qualifiers: Qualified Code(s): D70.9 - Neutropenia, unspecified (5) CVA (cerebral vascular accident) Qualifiers: CVA mechanism: unspecified Qualified Code(s): I63.9 - Cerebral infarction, unspecified (6) Hypertension Qualifiers: Hypertension type: essential hypertension Qualified Code(s): I10 - Essential (primary) hypertension
--- NOTE | 2018-04-02 11:41 | Nephrology Progress Note ---
Date of Encounter: 04/02/18 Time of Encounter: 11:34 - Assessment and Plan (1) CVA (cerebral vascular accident) Current Visit: Yes Status: Chronic HX of, per primary. Qualifiers: CVA mechanism: unspecified Qualified Code(s): I63.9 - Cerebral infarction, unspecified (2) Dizziness Current Visit: Yes Status: Acute Bed alarm on for safety. Up with assistance only. (3) Hyponatremia Current Visit: Yes Status: Acute Na is 132. Continue IVF. Continue to hold HCTZ. (4) History of craniotomy Current Visit: Yes Status: Acute Could be a determining factor to hyponatremia. (5) Neutropenia Current Visit: Yes Status: Acute WBC is 2.9 today. Consider getting Heme/Onc for recommendations. Qualifiers: Qualified Code(s): D70.9 - Neutropenia, unspecified Subjective Principal diagnosis: falls/lightheaded Interval history: Pt seen and examined, doing well. Denies CP/SOB. Denies feeling lightheaded or dizziness. Objective - Vital Signs Vital signs: Vital Signs Temp Pulse Resp BP Pulse Ox 04/02/18 10:55 16 100 04/02/18 10:51 98.7 F 89 16 147/86 99 04/02/18 08:18 16 97 04/02/18 06:43 97.7 F 74 16 115/73 98 04/02/18 04:00 97.4 F L 64 17 116/74 98 04/02/18 03:50 16 95 04/02/18 00:43 16 95 04/02/18 00:42 97.5 F L 65 17 100/57 95 04/01/18 20:39 97.5 F L 68 16 95/60 96 04/01/18 20:01 16 98 04/01/18 15:36 97.6 F 72 16 118/71 100 04/01/18 15:17 16 97 Intake and Output 04/01/18 04/02/18 04/02/18 23:59 07:59 15:59 Intake Total 2047.0 / 2047.0 1000 / 1000 120 / 120 Output Total 1800 / 1800 800 / 800 Balance 2047.0 / 2047.0 -800 / -800 -680 / -680 Intake: IV Fluids 2047.0 / 2047.0 1000 / 1000 Lactated Ringers 1,000 ML @ 75 1000 / 1000 1000 / 1000 mls/hr IVC .[id number] MELISSA Rx#: [id number] Bactrim 800MG/160MG/10ML 23.5 1047.0 / 1047.0 ML In 0.9 % Sodium Chloride 500 ML @ 250 mls/hr IVPB Q8H MELISSA Rx#:[id number] Oral 120 / 120 Output: Catheter 1800 / 1800 800 / 800 Other: Meal Breakfast Percent of Meal Consumed 20% - General Appearance General appearance: Present: well-developed, chronically ill, frail EENT: Present: ATNC, hearing intact, vision intact Neck: Present: supple Respiratory: Present: clear, wheezing Cardiology: Present: no edema, normal S1, normal S2 Gastrointestinal: Present: normoactive bowel sounds, no tenderness, no guarding Integumentary: Present: no rash, warm and dry Neurologic: Present: alert and oriented x3 Psychiatric: Present: mood/affect appropriate, cooperative - Lab 04/02/18 09:18 04/02/18 05:15 Most recent lab results Calcium 8.3 mg/dL (8.6-10.3) L 04/02/18 05:15 Magnesium 1.7 mg/dL (1.6-2.6) 03/30/18 02:17 Urine Sodium 25.6 mEq/L 03/31/18 03:20 Consult Discharge Plan - Plan Referrals: Indigo Louis CNP [Primary Care Provider] -
--- NOTE | 2018-04-02 15:51 | Pain Management Consultation ---
Date of Encounter: 04/02/18 Time of Encounter: 15:49 Assessment and Plan (1) Compression fracture of lumbar vertebra Current Visit: Yes Status: Acute The assessment and plan as outlined above was discussed with the patient and/or family members who expressed understanding and agreement. All questions were answered. My concern is for the underlying cause of the fracture. With a history of central nervous system infection is important to move forward and get a lumbar MRI. I will order this today. However, overall given the recent fall with unclear loss of consciousness it would be recommended for the patient can transfer to [facility]. Qualifiers: Encounter type: subsequent encounter Lumbar vertebra fracture level: L4 Fracture type: closed Fracture healing: with routine healing Qualified Code( s): S32.040D - Wedge compression fracture of fourth lumbar vertebra, subsequent encounter for fracture with routine healing (2) History of craniotomy Current Visit: Yes Status: Acute The assessment and plan as outlined above was discussed with the patient and/or family members who expressed understanding and agreement. All questions were answered. Patient has a history craniotomy for a "brain infection." The patient does not. To have meningeal symptoms at this time but does not fact have severe low back pain that is new for her. We will work this up but I think with the presence of the loss of consciousness it would be warranted should the patient to [facility] for further evaluation since the patient has a history of craniotomy their within the last month. (3) Neutropenia Current Visit: Yes Status: Acute The assessment and plan as outlined above was discussed with the patient and/or family members who expressed understanding and agreement. All questions were answered. May be suggestive of a early-onset infection. I do not know what her baseline is but would recommend following trans-and the CBC/white count. Qualifiers: Qualified Code(s): D70.9 - Neutropenia, unspecified History of Present Illness Chief complaint: back pain HPI: Ms. Rondon is a 62 year old female Who was admitted recently after loss of consciousness associated with a fall. 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 She was discharged to home when the event occurred. She does not recall the event. She woke up with back pain and was transported to the hospital here. She complains of back pain that radiates across her back into her hips and legs. She calls it a "sciatica." The patient has an overall feeling of malaise. The patient reports some mild lower extremity weakness. She otherwise normally takes care of herself. She reports no fevers or chills. She reports no bowel or bladder dysfunction. Past Med Surg Social Fam HX - Past Medical History Medical history: COPD, CVA, hyperlipidemia, hypertension, other Additional medical history: hx aneurysms Psychiatric history: no psych history - Past Surgical History Surgical History: cholecystectomy, hysterectomy Additional surgical history: brain aneurysm repair - Social History Smoking Status: Current every day smoker Packs per day: 1 Smokeless Tobacco Status: No Alcohol use: none Drug use: none - Family History Father Living Status: Age at : 45 Cause of : cancer Hx Family Cancer: Yes (Unknown what kind of cancer) Medications and Allergies Albuterol Neb [Proventil Neb] 2.5 mg IH Q4HR PRN 03/29/18 [History] Aspirin [Adult Aspirin] 81 mg PO DAILY 03/29/18 [History] Atorvastatin [Lipitor] 40 mg PO HS 03/29/18 [History] Cholecalciferol (D-3) [Vitamin D] 1,000 unit PO 2XW 03/29/18 [History] Donepezil [Aricept] 5 mg PO HS 03/29/18 [History] Lisinopril [Zestril] 20 mg PO DAILY PRN 03/29/18 [History] Naproxen [Naproxen] 500 mg PO BID PRN 03/29/18 [History] Omeprazole [PriLOSEC] 40 mg PO DAILY 03/29/18 [History] Sulfamethoxazole/Trimeth [Bactrim 800MG/160MG/10ML] 23.5 ml IVPB TID 03/29/18 [ History] hydroCHLOROthiazide [Hydrochlorothiazide] 25 mg PO DAILY 03/29/18 [History] 3 Allergy/AdvReac Type Severity Reaction Status Date / Time No Known Allergies Allergy Verified 03/29/18 06:22 Review of Systems - Constitutional Constitutional ROS IM: as per HPI - EENT Nose, mouth and throat: headache(s) - Cardiovascular Cardiovascular ROS: no chest pain, no leg edema, no lightheadedness - Respiratory Respiratory: no pain on inspiration, no pain with cough - Gastrointestinal Gastrointestinal: no abdominal pain, no constipation, no diarrhea, no heartburn - Genitourinary Genitourinary ROS: no difficulty urinating, no flank pain, no urinary hesitancy - Musculoskeletal Musculoskeletal ROS: as per HPI, radiating pain into limb - Integumentary Integumentary: no erythema, no lesions, no swelling - Neurological Neurological ROS: abnormal gait, radicular pain - Psychiatric Psychiatric general: no anxiety, no confusion, no depression - Hematologic/Lymphatic Hematologic/Lymphatic pediatric: no easy bleeding, no easy bruising Physical Exam Initial Vital Signs Temp Pulse Resp BP Pulse Ox 97.5 F L 75 20 140/82 95 03/29/18 03:30 03/29/18 03:30 03/29/18 03:30 03/29/18 03:30 03/29/18 03:30 - General physical appearance General physical appearance: awake & oriented - Eyes Eye exam: normal ocular movement - Respiratory normal respiratory effort, clear to auscultation - Cardiovascular Cardiovascular exam: Present: RRR - Abdomen Abdomen: soft, non tender, bowel sounds - Neurologic normal coordination, memory loss - Musculoskeletal Musculoskeletal: point tenderness over spinal process (sweakness symmetric LE at 4/5 bilaterally. ) - Psychiatric Psychiatric: oriented to time, oriented to person, oriented to place Results - Labs 04/02/18 09:18 04/02/18 05:15 Abnormal lab results WBC 2.9 K/mcL (4.3-11.1) L 04/02/18 09:18 RBC 2.89 M/mcL (3.82-4.97) L 04/02/18 09:18 Hgb 8.4 g/dL (11.5-15.4) L 04/02/18 09:18 Hct 26.5 % (35.3-44.9) L 04/02/18 09:18 RDW 16.2 % (11.5-14.5) H 04/02/18 09:18 MPV 9.0 fL (9.4-12.4) L 04/02/18 09:18 Sodium 132 mEq/L (136-145) L 04/02/18 05:15 Serum Osmolality 245 mOsm/kg (280-300) L 03/29/18 04:44 Calculated Osmolality 273 (280-300) L 04/02/18 05:15 Uric Acid < 1.5 mg/dL (2.3-7.6) L 03/29/18 03:46 Calcium 8.3 mg/dL (8.6-10.3) L 04/02/18 05:15 LDL Cholesterol, Calc 109 mg/dL (0-99) H 03/29/18 12:20 Urine Osmolality 155 mOsm/kg (300-1090) L 03/31/18 03:20 Diabetes panel 04/02/18 Range/Units 05:15 Sodium 132 L (136-145) mEq/L Potassium 4.3 (3.5-5.1) mEq/L Chloride 103 (98-107) mEq/L Carbon Dioxide 23 (23-29) mEq/L BUN 11 (8-23) mg/dL Creatinine 0.65 (0.60-1.20) mg/dL Glucose 91 (70-105) mg/dL Calcium 8.3 L (8.6-10.3) mg/dL Calcium panel 04/02/18 Range/Units 05:15 Calcium 8.3 L (8.6-10.3) mg/dL Pituitary panel 04/02/18 Range/Units 05:15 Sodium 132 L (136-145) mEq/L Potassium 4.3 (3.5-5.1) mEq/L Chloride 103 (98-107) mEq/L Carbon Dioxide 23 (23-29) mEq/L BUN 11 (8-23) mg/dL Creatinine 0.65 (0.60-1.20) mg/dL Glucose 91 (70-105) mg/dL Calcium 8.3 L (8.6-10.3) mg/dL Adrenal panel 04/02/18 Range/Units 05:15 Sodium 132 L (136-145) mEq/L Potassium 4.3 (3.5-5.1) mEq/L Chloride 103 (98-107) mEq/L Carbon Dioxide 23 (23-29) mEq/L BUN 11 (8-23) mg/dL Creatinine 0.65 (0.60-1.20) mg/dL Glucose 91 (70-105) mg/dL Calcium 8.3 L (8.6-10.3) mg/dL All other labs normal. - Imaging Additional studies: Reviewed the CT of the hip and the report is as follows: CT/CT hip LT w con IMPRESSION: 1. Acute compression deformity of the L4 vertebral body with 50% loss of height and 6 mm of retropulsion resulting in mild to moderate central canal stenosis at this level. 2. No acute pelvic fracture identified. 3. Mild degenerative changes of the bilateral hips. D/ / Atif Genao MD / Atif Genao MD Interpreting Provider: Atif Genao MD Consult Discharge Plan - Plan Referrals: Indigo Louis TOWER ERECTOR HELPER [Primary Care Provider] -
--- NOTE | 2018-04-02 23:56 | Event Note ---
Date of Encounter: 04/02/18 Time of Encounter: 23:39 Alerted by pts. nurse VIKAS Montilla that pts. lumbar spine CT had resulted and showed acute appearing compression fracture involving the superior endplate of L4 with height loss of approximately 70-80% maximally. Retropulsion of fragments present leading to at least mild central canal stenosis. Abdominal aortic aneurysm measuring 3.1 cm maximally with recommendations for follow-up every 3 years. Records from patient's encounters at [facility] requisitioned to determine if AAA is new or pre-existing. Recommend patient follow-up with vascular surgery as outpatient on discharge.
[2018-04-03] MEDS: Ringers Solution, Lactated 1,000 ML IVC SCH (01:11)
[2018-04-03] MEDS: Ipratropium/Albuterol Neb 3 ML IH SCH ×4 (03:45→15:46)
[2018-04-03] MEDS: *HR* OxyCODONE Immed Rel 5 MG TABLET PO PRN ×2 (05:17→16:20)
[2018-04-03] MEDS: SULFAMETHOXAZOLE IVPB SCH ×2 (05:18→12:59)
[2018-04-03] MEDS: TRIMETH IVPB SCH ×2 (05:18→12:59)
[2018-04-03] MEDS: SODIUM CHLORIDE 0.9% IVPB SCH ×2 (05:18→12:59)
[2018-04-03 05:43] LABS: Basophils % 1.1 %; Eosinophils # 0.1 K/mcL (0.0-0.6); Eosinophils % 3.7 %; Hematocrit 25.5 % (35.3-44.9); Hemoglobin 8.2 g/dL (11.5-15.4); Lymphocytes # 0.7 K/mcL (0.6-4.6); Lymphocytes % 25.1 %; Mean Corpuscular HGB Conc 32.2 g/dL (31.6-35.5); Mean Corpuscular Hemoglobin 29.3 pg (28.0-33.3); Mean Corpuscular Volume 91.1 fL (83.0-100.0); Monocytes # 0.2 K/mcL (0.0-1.3); Monocytes % 5.5 %; Neutrophils # 1.8 K/mcL (1.6-8.9); Platelet Count 134 K/mcL (140-400); Red Cell Distribution Width 16.4 % (11.5-14.5); Segmented Neutrophils % 64.6 %
[2018-04-03 05:55] LABS: BUN/Creatinine Ratio 16 (6-26); Blood Urea Nitrogen 10 mg/dL (8-23); Calcium 8.3 mg/dL (8.6-10.3); Carbon Dioxide 24 mEq/L (23-29); Chloride 100 mEq/L (98-107); Glucose 92 mg/dL (70-105); Magnesium 1.8 mg/dL (1.6-2.6); Osmolality,Calculated 273 (280-300); Potassium 4.4 mEq/L (3.5-5.1); Sodium 132 mEq/L (136-145); eGFR For Non-African Americans > 60 (> 60)
[2018-04-03] MEDS: Aspirin Enteric Coated 81 MG Tablet PO SCH (08:22)
[2018-04-03] MEDS: Nicotine 21 MG PATCH.TD24 TD SCH (08:22)
--- NOTE | 2018-04-03 15:59 | Discharge Summary ---
<Victor HugoaddyJulita Martinez - Last Filed: 04/03/18 15:55> - NOTES TO OUTPATIENT PROVIDER Notes to Outpatient Provider: Patient being transfered to [facility] for further management of acute L4 lumber compression fraction with retropulsion of fragment and mild central canal stenosis d/t infectious process versus fall. Was hyponatremic on admission and was started on salt tablets. Was found to have a new 3.1 cm aortic aneuysm on CT. Recommend outpatient follow up with vascular. Date of Encounter: 04/03/18 Time of Encounter: 09:17 - Discharge Diagnosis (1) Hyponatremia Priority: Primary Status: Acute (2) Compression fracture of lumbar vertebra Priority: Primary Status: Acute Qualifiers: Encounter type: subsequent encounter Lumbar vertebra fracture level: L4 Fracture type: closed Fracture healing: with routine healing Qualified Code( s): S32.040D - Wedge compression fracture of fourth lumbar vertebra, subsequent encounter for fracture with routine healing (3) History of craniotomy Priority: Secondary Status: Chronic (4) Neutropenia Priority: Secondary Status: Acute Qualifiers: Qualified Code(s): D70.9 - Neutropenia, unspecified (5) CVA (cerebral vascular accident) Priority: Secondary Status: Chronic Qualifiers: CVA mechanism: unspecified Qualified Code(s): I63.9 - Cerebral infarction, unspecified (6) Hypertension Priority: Secondary Status: Chronic Qualifiers: Hypertension type: essential hypertension Qualified Code(s): I10 - Essential (primary) hypertension (7) Tobacco abuse Priority: Secondary Status: Chronic Hospital course: Marva Rondon is a 62 YOF with a history of recent crainiotomy appoximately 4 weeks ago at [facility] d/t salmonella meningitis of the brain. Per [facility] ID she was on Cipro for 2 weeks, which was switched to Bactrim d/t hallucinations per patient report. Patient has now been on Bactrim for approximately 2 weeks and continues to have hallucinations, however less frequently. She was scheduled to follow up at [facility] for multiple visits, but d/t being hospitalized she was unable to make these appointments. She was also started on HCTZ approximately 2 weeks ago, which she took for about 7 days and then self discontinued d/t increased urinary frequency. Patient presented to the ED due to increased falls over the past 3 days, typically occurring when changing from a lying to standing position. [facility] ID was contacted regarding continuation of IV bactrim, to which we were told to continue until her appointment on 04/05. She was found to be hyponatremic at 117 on admission, likely multifactorial considering recent crainiotomy, bactrim, HCTZ, and urinary retention. Initial labs showed Urine osmo 561, Urine Na 178.4, Serum osmo 245, Random cortisol 31.3 , Uric acid <1.5. Cerbral salt wasting, SIADH, and medication induced hyponatremia or malignancy were possible causes. 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 Bactrim was changed to a non- hypotonic solution. Nephrology was consulted for management of complicated hyponatremia. She was fluid restricted to 1.5 L per day, received salt tabs TID , and 1 dose of Tolvaptan. She has been asymptomatic throughout her stay and is now at a sodium of 132 and stable. Patient continued to complain of hip pain. Hip x-ray was negative for acute fracture of the hip or pelvis. Hip CT showed am acute L4 compression fracture. Pain management was consulted for possible kyphoplasty. MRI could not be obtained due to patient have non-MRI compatible mata aneurysm clips per patient and family. CT lumbar showed acute appearing compression fracture of L4 with approximately 70-80% height loss and retropulsion of fragments present, leading to mild central canal stenosis. Due to unclear etiology of the fracture and patient's recent history of infection status post crainiotomy, pain managment recommended transfer to [facility] for further management. Patient is hemodynamically stable and appropriate for transfer. - Time Spent with Patient Total time spent providing and/or coordinating discharge services: - Discharge Medications Home Medications: Albuterol Neb [Proventil Neb] 2.5 mg IH Q4HR PRN 03/29/18 [History] Aspirin [Adult Aspirin] 81 mg PO DAILY 03/29/18 [History] Atorvastatin [Lipitor] 40 mg PO HS 03/29/18 [History] Cholecalciferol (D-3) [Vitamin D] 1,000 unit PO 2XW 03/29/18 [History] Donepezil [Aricept] 5 mg PO HS 03/29/18 [History] Lisinopril [Zestril] 20 mg PO DAILY PRN 03/29/18 [History] Naproxen 500 mg PO BID PRN 03/29/18 [History] Omeprazole [PriLOSEC] 40 mg PO DAILY 03/29/18 [History] Sulfamethoxazole/Trimeth [Bactrim 800MG/160MG/10ML] 23.5 ml IVPB TID 03/29/18 [ History] Sodium Chloride [Sodium Chloride Tab] 1 gm PO TID tablet 04/03/18 [Rx] Allergies/Adverse Reactions: 3 Allergy/AdvReac Type Severity Reaction Status Date / Time No Known Allergies Allergy Verified 03/29/18 06:22 Date of admission: 03/29/18 10:16 Primary care physician: Indigo Louis, Consults: 04/02/18 13:30 Consult to Physician [CONS] Routine Consulting Provider: Angel Quinn Reason for Consult: Acute L4 compression fracture Call Completed: Yes - Constitutional Vitals: Temp Pulse Resp BP Pulse Ox 97.7 F 77 17 105/56 95 04/03/18 11:26 04/03/18 11:26 04/03/18 15:47 04/03/18 11:26 04/03/18 15:47 Exam: General: NAD. Lying comfortably in bed. HEENT: EOMI, atraumatic, normocephalic Cardiovascular: RRR, normal S1 & S2, No JVD. Lungs: Bilateral crackles in the bases, improved from yesterday Abdomen: Soft, non-tender, BS noted, no guarding Extremities:Tender to palpation of the left upper thigh, no swelling in b/l LE Neurological: No focal deficits Skin: Warm, dry Psych: Answers questions appropriately. - Patient Status Disposition: Transfer Other Condition: Fair Functional capacity at discharge: bed bound Overall status at discharge: patient is progressing back to baseline - Discharge Instructions Follow Up With: Indigo Louis, RESEARCH COMPLIANCE SPECIALIST [Primary Care Provider] - - Diet and Activity Activity: increase activity as tolerated Diet: regular diet <Franny Nicole - Last Filed: 04/03/18 17:04> Date of Encounter: 04/03/18 - Discharge Diagnosis (1) CVA (cerebral vascular accident) Status: Chronic Qualifiers: CVA mechanism: unspecified Qualified Code(s): I63.9 - Cerebral infarction, unspecified (2) COPD (chronic obstructive pulmonary disease) Status: Suspected Qualifiers: COPD type: unspecified COPD Qualified Code(s): J44.9 - Chronic obstructive pulmonary disease, unspecified (3) Hypertension Status: Chronic Qualifiers: Hypertension type: essential hypertension Qualified Code(s): I10 - Essential (primary) hypertension (4) DVT prophylaxis Status: Acute (5) Hyponatremia Status: Acute (6) History of brain surgery Status: Acute (7) Tobacco abuse Status: Chronic (8) Salmonella meningitis Status: Acute (9) Compression fracture of lumbar vertebra Status: Acute Qualifiers: Encounter type: subsequent encounter Lumbar vertebra fracture level: L4 Fracture type: closed Fracture healing: with routine healing Qualified Code( s): S32.040D - Wedge compression fracture of fourth lumbar vertebra, subsequent encounter for fracture with routine healing Hospital course: Ms. Rondon is a 62 year old female - Time Spent with Patient Total time spent providing and/or coordinating discharge services: Date of admission: 03/29/18 10:16 Primary care physician: Indigo Louis, Consults: 04/02/18 13:30 Consult to Physician [CONS] Routine Consulting Provider: Angel Quinn Reason for Consult: Acute L4 compression fracture Call Completed: Yes - Constitutional Vitals: Temp Pulse Resp BP Pulse Ox 98.9 F 86 16 100/65 97 04/03/18 16:27 04/03/18 16:27 04/03/18 16:27 04/03/18 16:27 04/03/18 16:27 - Attending Attestation I examined this patient and my medical decision-making was reviewed with the Resident Physician Dr. Fisher. I agree with the documented findings, disposition and treatment plan as described except to the extent set forth below. Mr. Rondon is a 62 Y/ O F with a history of recent crainiotomy appoximately 4 weeks ago at [facility] d/t salmonella meningitis of the brain. Per [facility] ID she was on Cipro for 2 weeks, which was switched to Bactrim d/t hallucinations per patient report. Patient has now been on Bactrim for approximately 2 weeks. She was also started on HCTZ approximately 2 weeks ago. Pt got admitted here for hyponatremia and multiple falls. Her hyponatremia got corrected slowly. However she did have lower back pain, her lumber spine CT showed L4 fracture. Pt was evaluated by pain management Dr. Vásquez who is concerned about infectious process for this fx, especially with recent salmonella meningitis. So he recommend to transfer pt to [facility] for further higher level of care where she was treated before. So will arrange for [facility] transfer today. Talked to pt's son at bed side and explained to him about current care. gen: A, A< O x 3 Chest: Diminished BS b/l Heart: S1S2+ RRR Back: moderate tenderness in lumber spine region.
[2018-04-03 16:26] VITALS: BP 100/65
== END 2018-04-03 18:03 | disposition other institution (70) | DRG 641 ==
LOC: 3NENU 03:28 → EMEROOARM 03:28 → SUATTDRO 05:56 → 3NENU 06:53 → SUATTDRO 10:16
PROVIDERS: ADMIT Internal Medicine; ATTEND Family Medicine

== ENCOUNTER 2019-06-17 14:37 | Inpatient (IN) ==
[2019-06-17] MEDS ORDERED: methylPREDNISolone 125 MG/2 ML VIAL IVP ONE (16:13)
[2019-06-17] MEDS ORDERED: Ipratropium/Albuterol Neb 3 ML IH ONE (16:13)
[2019-06-17] MEDS ORDERED: *HR* HYDROmorphone (PF) 1 MG/ML SYRINGE IVP ONE (16:30)
[2019-06-17 16:50] LABS: Basophils % 0.2 %; Eosinophils % 0.1 %; Hematocrit 30.8 % (35.3-44.9); Hemoglobin 10.3 g/dL (11.5-15.4); Immature Granulocytes % 1.1 % (0-4); Lymphocytes # 0.6 K/mcL (0.6-4.6); Lymphocytes % 6.6 %; Mean Corpuscular HGB Conc 33.4 g/dL (31.6-35.5); Mean Corpuscular Hemoglobin 30.3 pg (28.0-33.3); Mean Corpuscular Volume 90.6 fL (83.0-100.0); Mean Platelet Volume 9.2 fL (9.4-12.4); Monocytes # 0.3 K/mcL (0.0-1.3); Neutrophils # 8.5 K/mcL (1.6-8.9); Platelet Count 359 K/mcL (140-400); Red Cell Distribution Width 13.3 % (11.5-14.5); White Blood Count 9.6 K/mcL (4.3-11.1)
[2019-06-17 17:07] LABS: BUN/Creatinine Ratio 19 (6-26); Blood Urea Nitrogen 15 mg/dL (8-23); Calcium 8.8 mg/dL (8.6-10.3); Carbon Dioxide 26 mEq/L (23-29); Chloride 103 mEq/L (98-107); Glucose 99 mg/dL (70-105); Osmolality,Calculated 279 (280-300); Potassium 4.2 mEq/L (3.5-5.1); Sodium 134 mEq/L (136-145); eGFR For African Americans > 60 (> 60); eGFR For Non-African Americans > 60 (> 60)
[2019-06-17 17:08] LABS: Troponin I < 0.03 ng/mL (< 0.04)
[2019-06-17] MEDS ORDERED: *HR* Midazolam HCl 2 MG/2 ML VIAL IVP ONE (17:42)
[2019-06-17] MEDS ORDERED: Naloxone 0.4 MG/ML INJ IVP PRN (17:45)
[2019-06-17] MEDS ORDERED: Ondansetron 4 MG/2 ML VIAL IVP PRN (17:45)
[2019-06-17] MEDS ORDERED: *HR* LORazepam 2 MG/ML VIAL IVP ONE (17:50)
[2019-06-17] MEDS ORDERED: D5% in Water 1,000 ML IVC PRN (18:11)
[2019-06-17] MEDS ORDERED: Dextrose Gel 15 GM/37.5 ML TUBE PO PRN ×2 (18:11)
[2019-06-17] MEDS ORDERED: *HR* Dextrose 50 % in Water (Syg) 50 ML SYRINGE IVP PRN (18:11)
[2019-06-17] MEDS: Budesonide/Formoterol 160/4.5 1 PUFF INH IH SCH (20:28)
[2019-06-17] MEDS: Ipratropium/Albuterol Neb 3 ML IH SCH ×2 (20:29→23:25)
[2019-06-18] MEDS: Doxycycline 100 MG in 0.9 % Sodium Chloride Mini Bag 100 ML IVPB SCH ×3 (01:46→18:12)
[2019-06-18] MEDS: *HR* Heparin 5,000 UNIT/ML VIAL SQ SCH ×4 (01:47→21:00)
[2019-06-18] MEDS: Insulin LISPRO 300 UNITS/3 ML VIAL SQ SCH ×5 (02:00→20:35)
[2019-06-18] MEDS: MethylPREDNISolone 40 MG/ML VIAL IVP SCH ×3 (02:05→18:01)
[2019-06-18 03:51] LABS: Adenovirus Not Detected (Not Detect); Bordetella Pertussis Not Detected (Not Detect); Chlamydophila pneumoniae Not Detected (Not Detect); Coronavirus 229E Not Detected (Not Detect); Coronavirus HKU1 Not Detected (Not Detect); Coronavirus NL63 Not Detected (Not Detect); Coronavirus OC43 Not Detected (Not Detect); Human Metapneumovirus Not Detected (Not Detect); Human Rhinovirus/Enterovirus Not Detected (Not Detect); Influenza A Subtype 2009 H1 Not Detected (Not Detect); Influenza A Untypeable Not Detected (Not Detect); Influenza B Not Detected (Not Detect); Mycoplasma pneumoniae Not Detected (Not Detect); Parainfluenza Virus 1 Not Detected (Not Detect); Parainfluenza Virus 2 Not Detected (Not Detect); Parainfluenza Virus 3 Not Detected (Not Detect); Parainfluenza Virus 4 Not Detected (Not Detect); Respiratory Syncytial Virus Not Detected (Not Detect)
[2019-06-18] MEDS: Ipratropium/Albuterol Neb 3 ML IH SCH ×5 (03:55→20:11)
[2019-06-18] MEDS: Budesonide/Formoterol 160/4.5 1 PUFF INH IH SCH ×2 (07:44→20:11)
[2019-06-18 08:02] LABS: ABG Base Excess 2 mEq/L (-2 to 3); ABG HCO3 26 mEq/L (21-27); ABG Oxygen Saturation 96 % (95-98); ABG PCO2 37 mmHg (35-45); ABG PH 7.46 pH Units (7.32-7.45); ABG PO2 79 mmHg (85-104); ABG TCO2 27 mEq/L (20-26)
[2019-06-18] MEDS ORDERED: Aspirin Enteric Coated 81 MG Tablet PO SCH (09:00)
[2019-06-18] MEDS ORDERED: Insulin LISPRO 300 UNITS/3 ML VIAL SQ ONE (09:16)
[2019-06-18 10:57] LABS: Basophils % 0.1 %; Hematocrit 29.4 % (35.3-44.9); Immature Granulocytes % 1.7 % (0-4); Lymphocytes # 0.5 K/mcL (0.6-4.6); Lymphocytes % 5.8 %; Mean Corpuscular Hemoglobin 30.4 pg (28.0-33.3); Mean Corpuscular Volume 89.4 fL (83.0-100.0); Mean Platelet Volume 9.2 fL (9.4-12.4); Monocytes # 0.4 K/mcL (0.0-1.3); Monocytes % 4.5 %; Neutrophils # 7.3 K/mcL (1.6-8.9); Platelet Count 373 K/mcL (140-400); Red Blood Count 3.29 M/mcL (3.82-4.97); Red Cell Distribution Width 13.2 % (11.5-14.5); Segmented Neutrophils % 87.9 %; White Blood Count 8.3 K/mcL (4.3-11.1)
[2019-06-18 11:06] LABS: INR 1.2; Prothrombin Time 13.2 Seconds (9.4-12.1)
[2019-06-18 11:15] LABS: Alanine Aminotransferase 9 Units/L (7-52); Albumin 3.4 g/dL (3.5-5.7); Albumin/Globulin Ratio 1.1 (1.1-2.2); Alkaline Phosphatase 88 Units/L (34-104); Aspartate Amino Transferase 8 Units/L (13-39); BUN/Creatinine Ratio 20 (6-26); Bilirubin,Total 0.2 mg/dL (0.3-1.0); Blood Urea Nitrogen 15 mg/dL (8-23); Calcium 8.9 mg/dL (8.6-10.3); Carbon Dioxide 25 mEq/L (23-29); Chloride 101 mEq/L (98-107); Globulin 3.1 g/dL (2.4-3.5); Glucose 132 mg/dL (70-105); Magnesium 1.8 mg/dL (1.6-2.6); Osmolality,Calculated 287 (280-300); Phosphorous 3.4 mg/dL (2.7-4.5); Potassium 3.9 mEq/L (3.5-5.1); Sodium 137 mEq/L (136-145); Total Protein 6.5 g/dL (6.4-8.9); eGFR For African Americans > 60 (> 60); eGFR For Non-African Americans > 60 (> 60)
[2019-06-19] MEDS: Ipratropium/Albuterol Neb 3 ML IH SCH ×3 (00:23→07:34)
[2019-06-19 03:08] LABS: BUN/Creatinine Ratio 23 (6-26); Blood Urea Nitrogen 18 mg/dL (8-23); Calcium 8.5 mg/dL (8.6-10.3); Carbon Dioxide 24 mEq/L (23-29); Chloride 103 mEq/L (98-107); Glucose 175 mg/dL (70-105); Magnesium 1.8 mg/dL (1.6-2.6); Osmolality,Calculated 292 (280-300); Phosphorous 2.8 mg/dL (2.7-4.5); Potassium 3.6 mEq/L (3.5-5.1); Sodium 138 mEq/L (136-145); eGFR For African Americans > 60 (> 60); eGFR For Non-African Americans > 60 (> 60)
[2019-06-19] MEDS: MethylPREDNISolone 40 MG/ML VIAL IVP SCH (05:32)
[2019-06-19] MEDS: Doxycycline 100 MG in 0.9 % Sodium Chloride Mini Bag 100 ML IVPB SCH (05:33)
[2019-06-19] MEDS: *HR* Heparin 5,000 UNIT/ML VIAL SQ SCH (05:41)
[2019-06-19] MEDS ORDERED: Levothyroxine 25 MCG TABLET PO SCH (06:30)
[2019-06-19 07:06] VITALS: BP 167/88
[2019-06-19] MEDS: Budesonide/Formoterol 160/4.5 1 PUFF INH IH SCH (07:34)
[2019-06-19] MEDS: Insulin LISPRO 300 UNITS/3 ML VIAL SQ SCH (07:52)
[2019-06-19] MEDS ORDERED: hydroCHLOROthiazide 25 MG TABLET PO SCH (09:00)
[2019-06-19] MEDS ORDERED: tiZANidine 4 MG TABLET PO SCH (09:00)
[2019-06-19] MEDS ORDERED: MEMANTINE HCL 7 MG PO SCH (09:00)
[2019-06-19] MEDS ORDERED: Gabapentin 100 MG CAPSULE PO SCH (09:00)
[2019-06-19] MEDS ORDERED: NON-FORMULARY MEDICATION 1 EACH EACH (Pantoprazole Sodium [Protonix] 40 MG) PO SCH (09:00)
[2019-06-20] MEDS ORDERED: Cholecalciferol (D-3) 1,000 UNIT (25MCG) TABLET PO SCH (09:00)
== END 2019-06-19 10:25 | disposition home health service (06) | DRG 190 ==
LOC: EMEROOARM 14:37 → CDU 14:37 → 3BNU 06-18 15:17 → SUATTDRO 06-18 15:18
PROVIDERS: ADMIT Internal Medicine; ATTEND Family Medicine